=== PATIENT | male | born 1970 | race Caucasian/White ===

== ENCOUNTER 2020-12-13 22:19 | Inpatient (IN) | payer MEDICARE, OTHER ==
[~2020-12-13] VITALS: Ht 180.3 cm; Wt 106.1 kg
[2020-12-13] MEDS ORDERED: ASPIRIN 81 MG TAB.CHEW PO ONE (22:30)
[2020-12-13] MEDS ORDERED: NITROGLYCERIN OINT 1 GM PACKET TP ONE (22:30)
[2020-12-13 22:41] LABS: HEMATOCRIT 44.1 % (36.7-47.1); MEAN CORPUSCULAR HEMOGLOBIN 28.3 uug (23.8-33.4); MEAN CORPUSCULAR VOLUME 85.6 fL (73.0-96.2); PLATELET COUNT (AUTO) 221 K/uL (152-348)
[2020-12-13 22:49] LABS: CREATININE 2.2 mg/dL (0.6-1.3); POTASSIUM 4.3 mmol/L (3.5-5.1)
[2020-12-13 23:03] LABS: BILIRUBIN,DIRECT 0.1 mg/dL (0.0-0.2); BILIRUBIN,TOTAL 0.3 mg/dL (0.2-1.0); TOTAL PROTEIN, SERUM 7.1 g/dL (6.4-8.2)
[2020-12-13] MEDS ORDERED: ASPIRIN 81 MG TAB.CHEW ONE (23:11)
[2020-12-13 23:21] LABS: MAGNESIUM 1.2 mg/dL (1.8-2.4)
[2020-12-13] MEDS ORDERED: FUROSEMIDE 40 MG/4 ML VIAL IV ONE (23:30)
[2020-12-13] MEDS ORDERED: CYANOCOBALAMIN 1000 MCG/ML VIAL IM ONE (23:30)
[2020-12-13] MEDS ORDERED: FUROSEMIDE 40 MG/4 ML VIAL ONE (23:57)
[2020-12-13] MEDS ORDERED: CYANOCOBALAMIN 1000 MCG/ML VIAL ONE (23:57)
[2020-12-14] MEDS ORDERED: MAGNESIUM SULFATE/D5W 100 ML ONE ×3 (00:39→03:06)
[2020-12-14] MEDS: MAGNESIUM SULFATE/D5W 100 ML IV SCH ×3 (00:48→03:09)
--- NOTE | 2020-12-14 01:00 | NUR ---
Patient does not remember names and doses of home medications at this time.
[2020-12-14] MEDS ORDERED: lasix PO (01:11)
[2020-12-14] MEDS ORDERED: metformin PO (01:11)
[2020-12-14] MEDS ORDERED: omeprazole (01:11)
[2020-12-14] MEDS ORDERED: ALBUTEROL SULFATE 2.5 MG/3 ML NEBU NEB PRN (01:15)
[2020-12-14] MEDS ORDERED: INSULIN REGULAR, HUMAN 300 UNIT/3 ML VIAL SQ PRN (01:30)
[2020-12-14] MEDS ORDERED: DEXTROSE 50% 50 ML DISP.SYRIN IV PRN ×2 (01:30→14:30)
[2020-12-14] MEDS ORDERED: HEPARIN SODIUM,PORCINE 5,000 UNITS/ML VIAL ONE (01:44)
[2020-12-14] MEDS ORDERED: HEPARIN/D5W DRIP 500 ML ONE (01:45)
--- NOTE | 2020-12-14 02:20 | NUR ---
Started heparin drip at 1000 units/hr with [address] Slade's order.
[2020-12-14] MEDS: HEPARIN/D5W DRIP 500 ML IV PRN ×3 (02:22→11:37)
[2020-12-14] MEDS ORDERED: HEPARIN SODIUM,PORCINE/PF 100 UNIT/ML, 5ML SYR IV ONE (02:30)
--- NOTE | 2020-12-14 02:50 | NUR ---
Gave report to Sanjana CASILLAS
[2020-12-14] MEDS: CEFTRIAXONE 1 G in IV DEXTROSE 5% 50 ML IV SCH (03:00)
--- NOTE | 2020-12-14 03:10 | NUR ---
third magnesium ivpb hung, will continue on third floor
--- NOTE | 2020-12-14 03:25 | NUR ---
RECEIVED PT FROM ER VIA [facility]. UNDER THE CARE OF DAQUAN ALEXANDER. PT ON NONREBREATHER MASK. IV INTACT ON RIGHT WRIST AND LEFT WRIST. INFUSING HEPARIN AND MAGNESIUM SULFATE.PT IN NO ACUTE DISTRESS. ADMISSION PROCESS AND CARE PLAN INITIATED. BELONGING LIST DONE. SAFETY AND COMFORT PROVIDED. WILL CONTINUE TO MONITOR.
--- NOTE | 2020-12-14 03:30 | NUR ---
HEPARIN BOLUS GIVEN IN ER. CONTINUED RUNNING HEPARIN DRIP FROM ER AT 1000UNITS PER HOUR PER ER DOCTOR ORDERED. FAXED TO [facility] AND [facility]. ORDERED PTT LAB AT 6 HOURS WHICH IS 0830H.
[2020-12-14 03:40] VITALS: BP 126/72
[2020-12-14 05:08] LABS: *BILIRUBIN,URIN NEGATIVE (NEGATIVE); *BLOOD, URINE NEGATIVE (NEGATIVE); *CLARITY,URINE CLEAR (CLEAR); *COLOR,URINE YELLOW (YELLOW); *KETONES,URINE NEGATIVE (NEGATIVE); *UROBILINOGEN,URINE 0.2 E.U./dl (NORMAL); LEUKOCYTE ESTERASE ,URINE NEGATIVE (NEGATIVE); NITRITE, URINE NEGATIVE (NEGATIVE); PH,URINE 5.5 (5.0-8.0); UGLUCOSE NEGATIVE (NEGATIVE)
[2020-12-14] MEDS ORDERED: CEFTRIAXONE /D5W 50ML IVPB **ER PYXIS IV ONE (05:15)
[2020-12-14] MEDS: PANTOPRAZOLE SODIUM 40 MG VIAL IV SCH ×2 (05:38→21:01)
[2020-12-14] MEDS: BLOOD SUGAR DIAGNOSTIC 1 EACH STRIP VI SCH ×4 (05:41→21:01)
--- NOTE | 2020-12-14 06:30 | NUR ---
PT SLEPT INTERMITTENTLY. PT IN NO ACUTE DISTRESS. PRESCRIBED MEDICATION GIVEN AND PT TOLERATED IT WELL. SAFETY AND COMFORT PROVIDED. PT ON SINUS RHYTHM. PT ON 15L NONREBREATHER MASK. IV INTACT. WILL ENDORSE TO INCOMING NURSE FOR CONTINUITY OF CARE.
[2020-12-14 06:54] LABS: HEMATOCRIT 42.9 % (36.7-47.1); MEAN CORPUSCULAR HEMOGLOBIN 28.5 uug (23.8-33.4); MEAN CORPUSCULAR VOLUME 86.4 fL (73.0-96.2); PLATELET COUNT (AUTO) 192 K/uL (152-348)
--- NOTE | 2020-12-14 07:00 | NUR ---
Received patient in bed, left side position, alert, easily aroused and verbally responsive. noted shortness of breathe on 15L with a NRM. O2 saturation 94%, sinus rhythm on monitor, denies chest pain. continue AVELINO monitoring.
[2020-12-14 07:26] LABS: BILIRUBIN,TOTAL 0.3 mg/dL (0.2-1.0); CREATININE 1.4 mg/dL (0.6-1.3); MAGNESIUM 2.1 mg/dL (1.8-2.4); PHOSPHOROUS 5.2 mg/dL (2.5-4.9); POTASSIUM 4.1 mmol/L (3.5-5.1); TOTAL PROTEIN, SERUM 6.7 g/dL (6.4-8.2)
[2020-12-14 07:34] LABS: THYROID STIMULATING HORMONE 0.326 mIU/mL (0.358-3.740)
[2020-12-14] MEDS: IPRATROPIUM BROMIDE 0.5 MG/2.5 ML NEBU NEB SCH ×4 (07:42→19:30)
[2020-12-14 08:00] VITALS: BP 100/50
[2020-12-14] MEDS: ASPIRIN 81 MG TAB.CHEW PO SCH (08:19)
[2020-12-14] MEDS: FUROSEMIDE 40 MG/4 ML VIAL IV SCH ×2 (08:19→21:00)
[2020-12-14] MEDS ORDERED: PANTOPRAZOLE SODIUM IV 40 MG in IV DEXTROSE 5% 100 ML IV SCH (09:00)
[2020-12-14] MEDS ORDERED: HEPARIN SODIUM,PORCINE 5,000 UNITS/ML VIAL SQ SCH (09:00)
[2020-12-14] MEDS ORDERED: FUROSEMIDE 40 MG/4 ML VIAL IVP SCH (09:00)
--- NOTE | 2020-12-14 09:00 | NUR ---
seen by doctor Earlene, made aware of troponin levels this am, said continue heparin drips per protocol.
[2020-12-14 10:15] LABS: *AMPHETAMINE, URINE NEGATIVE (NEGATIVE); *CANNABINOID, URINE NEGATIVE (NEGATIVE); *COCCAINE, URINE NEGATIVE (NEGATIVE); *OPIATE, URINE NEGATIVE (NEGATIVE); *PHENCYCLIDINE SCREEN,URINE NEGATIVE (NEGATIVE)
[2020-12-14] MEDS ORDERED: HEPARIN SODIUM,PORCINE 5,000 UNITS/ML VIAL IV ONE ×2 (11:15→18:30)
[2020-12-14 11:36] VITALS: BP 101/61
--- NOTE | 2020-12-14 13:00 | NUR ---
[facility] Specimen PCR collected and sent to lab.
--- NOTE | 2020-12-14 14:57 | NUR ---
per pharmacy okay to give heparin drip on telemetry status. Dr. Banks noted and gave orders to transfer to telemetry.
[2020-12-14] MEDS ORDERED: UMEC62.5 IH (14:59)
[2020-12-14] MEDS ORDERED: POTA-10 PO (14:59)
[2020-12-14] MEDS ORDERED: FURO40TA5 PO (14:59)
[2020-12-14] MEDS ORDERED: LINA145C PO (14:59)
[2020-12-14] MEDS ORDERED: FENO160T PO (14:59)
[2020-12-14] MEDS ORDERED: PALI234D IM (14:59)
[2020-12-14] MEDS ORDERED: METF-440 PO (14:59)
[2020-12-14] MEDS ORDERED: ROSU40TA PO (14:59)
[2020-12-14] MEDS ORDERED: IBUP-1955 PO (14:59)
[2020-12-14] MEDS ORDERED: ASPI81TA31 PO (14:59)
[2020-12-14] MEDS ORDERED: ALBU18HF2 INH (14:59)
[2020-12-14] MEDS ORDERED: MONT10TA33 PO (14:59)
[2020-12-14] MEDS ORDERED: LAMO100T17 PO (14:59)
[2020-12-14] MEDS ORDERED: ERGO500040 PO (14:59)
[2020-12-14] MEDS ORDERED: SPIR25TA6 PO (14:59)
[2020-12-14] MEDS ORDERED: OMEP20CA15 PO (14:59)
[2020-12-14] MEDS ORDERED: FLUT1DIS28 IH (14:59)
[2020-12-14 16:00] VITALS: BP 118/66
[2020-12-14] MEDS: INSULIN REGULAR, HUMAN 300 UNIT/3 ML VIAL SQ PRN ×2 (16:44→21:08)
[2020-12-14 20:20] VITALS: BP 127/65
--- NOTE | 2020-12-14 21:33 | NUR ---
Received patient in bed awake alert and oriented x4. SOB noted on exertion. On continous O2 @ 15L nonrebreather mask , pulse ox 96%. All needs attended. Patient on continous heparin drip @ 1600 units/kg/hr @ 32 cc/hr via right arm heplock. Will monitor patient. For repeat PTT @ [place]. Voiding well in the urinal. On Lasix given as ordered. I & O monitored. Accucheck 151 with 2units humalog given as coverage. Patient sinus rhythm on the monitor. Denies any pain at this time. Kept comfortable. patient placed on continous pulse ox. VSS.
--- NOTE | 2020-12-15 01:07 | NUR ---
patient very restless in bed. AAOx4 Accidentally pulled IV out. Patient restarted with #20 right FA heplock, heparin infusing at 32cc/hr. Left arm #20 also placed flushed and patent, on IV ABT given as scheduled. On continous pulse ox 98% on 15L nonrebreather mask. Denies any pain nor any discomfort. Will monitor patient.
[2020-12-15] MEDS: IPRATROPIUM BROMIDE 0.5 MG/2.5 ML NEBU NEB SCH ×4 (01:27→19:14)
[2020-12-15] MEDS ORDERED: HEPARIN SODIUM,PORCINE 5,000 UNITS/ML VIAL SQ ONE (01:45)
[2020-12-15] MEDS: HEPARIN/D5W DRIP 500 ML IV PRN (02:02)
[2020-12-15] MEDS: CEFTRIAXONE 1 G in IV DEXTROSE 5% 50 ML IV SCH (02:11)
--- NOTE | 2020-12-15 02:16 | NUR ---
APTT 30.4 Heparin bolus 6000 units given per protocol. Heparin drip increase by 3000 units/kg/hr now on Heparin @28790 units/kg/hr @ 38cc/hr. For repeat PTT @ 0730am Addendum: 12/15/20 at 0650 by SAUD SCHMITT RN Heparin drip increase to 300 units/kg/hr. On heparin @ 1900 units/kg/hr @ 38cc/hr. For repeat PTT @0730am.APTT 30.4 Heparin bolus 6000 units given per protocol.
--- NOTE | 2020-12-15 05:07 | NUR ---
Slept most of the shift. Vital signs taken and recorded. Temp 99.1 HR 97 Resp 22 BP 119/62 pulse Ox 97% on 15L nonrebreather mask. Patient SR on the monitor. On continous pulse ox. On heparin drip @ 54906iqtkw/kg/hr @ 38 cc/hr via right forearm. Will monitor patient. Patient for possible transfer to ICU for better monitoring.
[2020-12-15] MEDS: BLOOD SUGAR DIAGNOSTIC 1 EACH STRIP VI SCH ×4 (06:39→21:04)
--- NOTE | 2020-12-15 06:40 | NUR ---
patient transferred to CCU. No respiratory distress noted.
[2020-12-15 07:17] LABS: MEAN CORPUSCULAR HEMOGLOBIN 28.7 uug (23.8-33.4); MEAN CORPUSCULAR VOLUME 86.5 fL (73.0-96.2); PLATELET COUNT (AUTO) 186 K/uL (152-348)
[2020-12-15 07:19] LABS: CREATININE 0.8 mg/dL (0.6-1.3); MAGNESIUM 1.6 mg/dL (1.8-2.4); PHOSPHOROUS 2.3 mg/dL (2.5-4.9); POTASSIUM 4.4 mmol/L (3.5-5.1)
--- NOTE | 2020-12-15 07:30 | NUR ---
Received change of shift report, patient is awake in bed and answers to questions asked. Pt complaining that he is unable to breath. Changes his non rebreather mask because the previous was not working, Pt states that he is now feeling better. Also changed out all his leads aand turned temperature down which was previously at 90. Safety measures are in place. Will continue to monitor patient.
--- NOTE | 2020-12-15 07:50 | NUR ---
Dr Lopez sees patient and gave order to have heparin drip discontinued. Will continue to monitor.
[2020-12-15] MEDS: MAGNESIUM SULFATE/D5W 100 ML IV SCH ×4 (08:13→13:46)
[2020-12-15] MEDS: ASPIRIN 81 MG TAB.CHEW PO SCH (08:35)
[2020-12-15] MEDS: FUROSEMIDE 40 MG/4 ML VIAL IV SCH ×2 (08:35→20:41)
[2020-12-15] MEDS: PANTOPRAZOLE SODIUM 40 MG VIAL IV SCH (08:35)
[2020-12-15] MEDS: INSULIN REGULAR, HUMAN 300 UNIT/3 ML VIAL SQ PRN ×3 (08:36→16:24)
--- NOTE | 2020-12-15 09:01 | NUR ---
Oral care done, Will continue to monitor.
[2020-12-15 12:00] VITALS: BP 117/45
[2020-12-15] MEDS ORDERED: ALBUTEROL SULFATE 8 GM HFA.AER.AD IH PRN (15:45)
[2020-12-15 16:00] VITALS: BP 129/67
[2020-12-15] MEDS ORDERED: NEUTRA PHOS PACKET PO ONE ×2 (16:00)
[2020-12-15] MEDS ORDERED: ALBUTEROL SULFATE 2.5 MG/3 ML NEBU NEB PRN (16:00)
[2020-12-15] MEDS: PANTOPRAZOLE SODIUM 40 MG TABLET.DR PO SCH (16:22)
--- NOTE | 2020-12-15 19:55 | NUR ---
Received patient in bed alert easily aroused with BIPAP in place. No s/s of distress noted. Soft restraints on bilateral hands .Iv intact on right and left hand patent and intact.Villalta catheter draining well with clear yellow urine output.No hematuria or sediment.1:1 sitter at bedside.Vss. Will continue to monitor.
[2020-12-15 20:32] VITALS: BP 114/65
[2020-12-16] VITALS: BP 112/58
[2020-12-16] MEDS: IPRATROPIUM BROMIDE 0.5 MG/2.5 ML NEBU NEB SCH ×4 (01:30→19:34)
[2020-12-16] MEDS: CEFTRIAXONE 1 G in IV DEXTROSE 5% 50 ML IV SCH (03:24)
[2020-12-16 06:00] VITALS: BP 106/57
[2020-12-16] MEDS: PANTOPRAZOLE SODIUM 40 MG TABLET.DR PO SCH ×2 (06:15→17:09)
[2020-12-16] MEDS: BLOOD SUGAR DIAGNOSTIC 1 EACH STRIP VI SCH ×4 (06:39→20:42)
[2020-12-16 07:01] LABS: HEMATOCRIT 44.3 % (36.7-47.1); MEAN CORPUSCULAR HEMOGLOBIN 28.9 uug (23.8-33.4); MEAN CORPUSCULAR VOLUME 87.7 fL (73.0-96.2); PLATELET COUNT (AUTO) 197 K/uL (152-348)
[2020-12-16 07:53] LABS: ALANINE AMINOTRANSFERASE 184 U/L (16-63); ALKALINE PHOSPHATASE 46 U/L (50-136); ASPARTATE AMINOTRANSFERASE 50 U/L (15-37); BILIRUBIN,DIRECT < 0.1 mg/dL (0.0-0.2); BILIRUBIN,TOTAL 0.5 mg/dL (0.2-1.0); CARBON DIOXIDE 39 mmol/L (21-32); CHLORIDE 100 mmol/L (98-107); CREATININE 0.7 mg/dL (0.6-1.3); GLUCOSE 119 mg/dL (74-106); PHOSPHOROUS 2.6 mg/dL (2.5-4.9); POTASSIUM 4.3 mmol/L (3.5-5.1); TOTAL PROTEIN, SERUM 7.2 g/dL (6.4-8.2); UREA NITROGEN, BLOOD 19 mg/dL (7-18)
--- NOTE | 2020-12-16 08:00 | NUR ---
received patient laying in bed in no apparent distress. patient is currently on BiPAP and tolerating well, rr even and non-labored, no c/o sob at this time. patient currently in PUI all precautions upheld, currently 1:1 due to patient with behavior on pulling on IV tubing, oxygen tubing, and cathether pulling. attempted to redirect patient with some help. vital signs bp:123/54, p: 83, rr: 20, spo2 96% on bipap, t: 98.6. reminded patient to use call light for help. call light within reach, side rails up x2. will monitor.
[2020-12-16 09:20] VITALS: BP 133/53
[2020-12-16] MEDS: FUROSEMIDE 40 MG/4 ML VIAL IV SCH (09:24)
[2020-12-16] MEDS: INSULIN REGULAR, HUMAN 300 UNIT/3 ML VIAL SQ PRN ×4 (09:24→20:44)
[2020-12-16] MEDS: ASPIRIN 81 MG TAB.CHEW PO SCH (09:26)
--- NOTE | 2020-12-16 11:00 | NUR ---
patient seen by Dr. Lopez.
--- NOTE | 2020-12-16 12:00 | NUR ---
Per patient he is to receive his next invega shot tomorrow 12/17, pharmacy aware.
[2020-12-16] MEDS ORDERED: OLANZAPINE ZYDIS 5 MG TAB.RAPDIS PO PRN (12:15)
[2020-12-16] MEDS ORDERED: LORAZEPAM 1 MG TABLET PO PRN (12:15)
--- NOTE | 2020-12-16 12:57 | NUR ---
Dr. Horner doing rounds, explained patient wishes to eat and drink and it is difficult with the bipap machine, per MD ok to place patient back on non-rebreather at 15L, RT notified, RT in unit at this time.
--- NOTE | 2020-12-16 14:37 | NUR ---
patient remains on 15L non-rebreather currently sleeping and in no apparent distress. RR even and non-labored, 0 episode of SOB at this time, spo2 at 95% on 15L
[2020-12-16] MEDS ORDERED: MONTELUKAST SODIUM 10 MG TABLET PO PRN (14:45)
[2020-12-16] MEDS ORDERED: ALBUTEROL SULFATE 8 GM HFA.AER.AD INH PRN (14:45)
--- NOTE | 2020-12-16 15:18 | NUR ---
received a call from pharmacy to ask patients family if they can bring linzess medication, spoke to sister Karrie calle i live in [place] and i cant come and my mother doesn't drive and is only turkish speaking.
[2020-12-16 15:55] VITALS: BP 123/62
[2020-12-16] MEDS ORDERED: FLUTICASONE/SALMETEROL 250/50 INHALER IH SCH (17:00)
[2020-12-16] MEDS: LAMOTRIGINE 100 MG TABLET PO SCH (17:09)
--- NOTE | 2020-12-16 18:51 | NUR ---
patient remains stable at this time. currently on 15L non-rebreather, 0 sob at this time. rr even and non-labored. 1:1 sitter at bed side. call light within reach. side rails up x2.
[2020-12-16] MEDS: ATORVASTATIN 40 MG TABLET PO SCH (20:09)
[2020-12-16 20:28] VITALS: BP 113/62
--- NOTE | 2020-12-16 20:52 | NUR ---
Received pt resting in bed. AAO x2. On 15L NRB, no acute distress noted. Unlabored and even respiration. No pain. Due med given as ordered. Blood sugar 162, insulin coverage given as per sliding scale. 1:1 sitter at bedside. Safety measures maintained. Will continue to monitor.
[2020-12-16] MEDS ORDERED: Medication Not On Formulary EA (Rosuvastatin Calcium (Crestor) 40 MG) PO SCH (21:00)
[2020-12-17 00:11] VITALS: BP 130/58
[2020-12-17] MEDS: IPRATROPIUM BROMIDE 0.5 MG/2.5 ML NEBU NEB SCH ×4 (00:31→19:30)
[2020-12-17] MEDS: CEFTRIAXONE 1 G in IV DEXTROSE 5% 50 ML IV SCH (03:21)
[2020-12-17 04:40] VITALS: BP 133/53
[2020-12-17] MEDS: PANTOPRAZOLE SODIUM 40 MG TABLET.DR PO SCH ×2 (06:10→17:16)
--- NOTE | 2020-12-17 06:25 | NUR ---
Pt tolerating 15L NRB, no acute distress noted. Slept comfortably t/o the night. Remains stable. Villalta catheter draining well with yellow colored urine. Will endorse accordingly.
[2020-12-17] MEDS: BLOOD SUGAR DIAGNOSTIC 1 EACH STRIP VI SCH ×4 (06:31→20:27)
[2020-12-17 07:21] LABS: HEMATOCRIT 44.7 % (36.7-47.1); MEAN CORPUSCULAR VOLUME 87.1 fL (73.0-96.2); PLATELET COUNT (AUTO) 215 K/uL (152-348)
[2020-12-17 07:33] LABS: CREATININE 0.7 mg/dL (0.6-1.3); MAGNESIUM 1.7 mg/dL (1.8-2.4); PHOSPHOROUS 3.1 mg/dL (2.5-4.9)
[2020-12-17 08:00] VITALS: BP 94/50
--- NOTE | 2020-12-17 08:05 | NUR ---
Patient received resting in bed. Sitter by bedside. On 15L O2 via non-rebreather mask. No complains verbalized. Right forearm 20 gauge intact. Safety measures in place. Will continue to monitor
[2020-12-17] MEDS ORDERED: Medication Not On Formulary EA (Fenofibrate 160 MG) PO SCH (09:00)
[2020-12-17] MEDS ORDERED: PALIPERIDONE PALMITATE 156 MG/ML SYRINGE IM ONE (09:00)
[2020-12-17] MEDS ORDERED: LINZESS 145MG - PATIENT MAY USE OWN MED- MD OK PO SCH (09:00)
[2020-12-17] MEDS ORDERED: Medication Not On Formulary EA (Linaclotide (Linzess) 145 MCG) PO SCH (09:00)
[2020-12-17] MEDS ORDERED: ASPIRIN 81 MG TAB.CHEW PO SCH (09:00)
[2020-12-17] MEDS: FENOFIBRATE NANOCRYSTALLIZED 145 MG TABLET PO SCH (09:53)
[2020-12-17] MEDS: ASPIRIN 81 MG TAB.CHEW PO SCH (09:53)
[2020-12-17] MEDS: LAMOTRIGINE 100 MG TABLET PO SCH ×2 (09:53→17:16)
[2020-12-17] MEDS: SPIRONOLACTONE 25 MG TABLET PO SCH (09:54)
[2020-12-17] MEDS: FUROSEMIDE 40 MG TABLET PO SCH (09:54)
[2020-12-17] MEDS: FLUTICASONE/VILANTEROL 1 EACH BLST.W.DEV INH SCH (09:55)
[2020-12-17] MEDS: MAGNESIUM SULFATE/D5W 100 ML IV SCH ×2 (10:57→12:14)
[2020-12-17 12:00] VITALS: BP 103/61
[2020-12-17] MEDS: INSULIN REGULAR, HUMAN 300 UNIT/3 ML VIAL SQ PRN (12:13)
[2020-12-17 16:00] VITALS: BP 106/61
--- NOTE | 2020-12-17 17:56 | NUR ---
Spoke with Honorio from Lab follow up with PCR secondary to PCR test has been 3 days pending. Per Honorio pcr test not resulted and will f/u in am.
[2020-12-17 19:54] VITALS: BP 127/54
[2020-12-17] MEDS: ATORVASTATIN 40 MG TABLET PO SCH (21:02)
[2020-12-18 00:23] VITALS: BP 132/51
[2020-12-18] MEDS: IPRATROPIUM BROMIDE 0.5 MG/2.5 ML NEBU NEB SCH ×4 (00:32→19:35)
[2020-12-18] MEDS: CEFTRIAXONE 1 G in IV DEXTROSE 5% 50 ML IV SCH (02:33)
[2020-12-18 04:20] VITALS: BP 122/61
[2020-12-18] MEDS: BLOOD SUGAR DIAGNOSTIC 1 EACH STRIP VI SCH ×4 (06:18→20:05)
[2020-12-18] MEDS: PANTOPRAZOLE SODIUM 40 MG TABLET.DR PO SCH ×2 (06:18→16:40)
[2020-12-18 06:51] LABS: CREATININE 0.8 mg/dL (0.6-1.3); MAGNESIUM 1.7 mg/dL (1.8-2.4); POTASSIUM 3.7 mmol/L (3.5-5.1)
--- NOTE | 2020-12-18 08:00 | NUR ---
Pt awake alert x 3. Pt denies any c/o pain. f/c draining dark yellow urine. Encouraged increase fluids. PT refusing his HHN tx. Explained purpose of HHN to help with his breathing. PT was agreeable. Call light is within reach.
[2020-12-18] MEDS: FENOFIBRATE NANOCRYSTALLIZED 145 MG TABLET PO SCH (08:06)
[2020-12-18] MEDS: LAMOTRIGINE 100 MG TABLET PO SCH ×2 (08:06→16:40)
[2020-12-18] MEDS: FUROSEMIDE 40 MG TABLET PO SCH (08:06)
[2020-12-18] MEDS: ASPIRIN 81 MG TAB.CHEW PO SCH (08:06)
[2020-12-18] MEDS: SPIRONOLACTONE 25 MG TABLET PO SCH (08:07)
[2020-12-18] MEDS: FLUTICASONE/VILANTEROL 1 EACH BLST.W.DEV INH SCH (08:07)
[2020-12-18 08:30] VITALS: BP 96/48
--- NOTE | 2020-12-18 11:00 | NUR ---
pt tolerating Tapered o2 to 10lit with simple mask with saturation of 93%.
[2020-12-18] MEDS: MAGNESIUM SULFATE/D5W 100 ML IV SCH ×2 (11:08→12:00)
[2020-12-18] MEDS: ACETAzolamide 250 MG TABLET PO SCH ×2 (11:08→20:02)
[2020-12-18] MEDS: INSULIN REGULAR, HUMAN 300 UNIT/3 ML VIAL SQ PRN ×2 (11:55→20:11)
[2020-12-18 12:00] VITALS: BP 114/67
[2020-12-18] MEDS: ALBUTEROL SULFATE 2.5 MG/ 0.5 ML NEBU NEB SCH ×2 (13:31→19:35)
--- NOTE | 2020-12-18 13:45 | NUR ---
Notified infection control of rapid result was negative. PT ok to stay out of covid isolation per infection control.
[2020-12-18 15:44] VITALS: BP 104/63
--- NOTE | 2020-12-18 18:31 | NUR ---
PT tolerating o2 titrated to 8 lit simple mask with sat of 94%. pt has good appetite throughout shift. PT is in no acute distress.
--- NOTE | 2020-12-18 19:45 | NUR ---
Received patient in bed, awake able to make some needs know, no sob no chest pain, on 8 liter oxygen via mask saturation sat 92 to 96%, patient redirectable, dougherty cath patent draining with yellow color urine in moderate amount cont to monitor.
[2020-12-18] MEDS: ATORVASTATIN 40 MG TABLET PO SCH (20:02)
[2020-12-18 20:14] VITALS: BP 112/52
[2020-12-19 00:08] VITALS: BP 123/58
[2020-12-19 04:30] VITALS: BP 110/55
[2020-12-19] MEDS: PANTOPRAZOLE SODIUM 40 MG TABLET.DR PO SCH ×2 (06:08→16:21)
[2020-12-19] MEDS: BLOOD SUGAR DIAGNOSTIC 1 EACH STRIP VI SCH (06:08)
[2020-12-19] MEDS: ALBUTEROL SULFATE 2.5 MG/ 0.5 ML NEBU NEB SCH ×3 (07:13→20:33)
[2020-12-19] MEDS: IPRATROPIUM BROMIDE 0.5 MG/2.5 ML NEBU NEB SCH ×3 (07:13→20:33)
[2020-12-19 08:00] VITALS: BP 97/57
--- NOTE | 2020-12-19 08:30 | NUR ---
PT's oxygen out while eating his breakfast. Noted o2 sat of 78% on r/a at rest. Reapplied simple mask @8lit with 96% o2 sat. pt is in no acute distress. Pt alert and oriented x 4. Call light is within reach.
[2020-12-19] MEDS: ACETAzolamide 250 MG TABLET PO SCH ×2 (08:49→20:21)
[2020-12-19] MEDS: ASPIRIN 81 MG TAB.CHEW PO SCH (08:49)
[2020-12-19] MEDS: SPIRONOLACTONE 25 MG TABLET PO SCH (08:49)
[2020-12-19] MEDS: LAMOTRIGINE 100 MG TABLET PO SCH ×2 (08:49→16:21)
[2020-12-19] MEDS: FUROSEMIDE 40 MG TABLET PO SCH (08:49)
[2020-12-19] MEDS: FLUTICASONE/VILANTEROL 1 EACH BLST.W.DEV INH SCH (08:50)
--- NOTE | 2020-12-19 09:00 | NUR ---
Pt refused G, RN aware..
[2020-12-19 09:52] LABS: HEMATOCRIT 46.9 % (36.7-47.1); MEAN CORPUSCULAR HEMOGLOBIN 28.3 uug (23.8-33.4); MEAN CORPUSCULAR VOLUME 85.7 fL (73.0-96.2); PLATELET COUNT (AUTO) 214 K/uL (152-348)
[2020-12-19 10:17] LABS: CREATININE 0.9 mg/dL (0.6-1.3); MAGNESIUM 2.2 mg/dL (1.8-2.4)
[2020-12-19] MEDS ORDERED: methylPREDNISolone SOD SUCC 125 MG/2 ML VIAL IV ONE (10:30)
[2020-12-19 11:57] VITALS: BP 105/62
--- NOTE | 2020-12-19 14:00 | NUR ---
Spoke with Sister asking for updates on patient. Sister, Flakita [phone], states that pt lives with his mom and brother Garrett. Gave information to kristian.
[2020-12-19 16:00] VITALS: BP 110/52
[2020-12-19] MEDS ORDERED: LACTULOSE 20 G/30 ML LIQUID UDC PO ONE (16:30)
[2020-12-19] MEDS ORDERED: LACTULOSE 20 G/30 ML LIQUID UDC PO PRN (17:30)
--- NOTE | 2020-12-19 18:13 | NUR ---
F/C taken out as ordered per pt's request will monitor pt's urine output. pt had 1500cc output on urine. Pt given lactulose no bm since admission.
[2020-12-19 19:57] VITALS: BP 102/48
[2020-12-19] MEDS: ATORVASTATIN 40 MG TABLET PO SCH (20:21)
[2020-12-20 04:00] VITALS: BP 136/69
--- NOTE | 2020-12-20 04:42 | NUR ---
Patient remain in bed with admitting dianosis of acute hypoxia. Patient also has 1:1 sitter for patient's safety and oxygen saturation. On 5L nasal cannula. Fall precautions maintained. Siderails up for safety. Accucheck 184. Will give coverage.
[2020-12-20] MEDS: PANTOPRAZOLE SODIUM 40 MG TABLET.DR PO SCH ×2 (06:19→16:24)
[2020-12-20 06:30] LABS: HEMATOCRIT 46.4 % (36.7-47.1); MEAN CORPUSCULAR HEMOGLOBIN 28.4 uug (23.8-33.4); MEAN CORPUSCULAR VOLUME 85.4 fL (73.0-96.2); PLATELET COUNT (AUTO) 238 K/uL (152-348)
[2020-12-20 06:53] LABS: BILIRUBIN,TOTAL 0.5 mg/dL (0.2-1.0); CREATININE 0.9 mg/dL (0.6-1.3); PHOSPHOROUS 4.3 mg/dL (2.5-4.9); POTASSIUM 3.7 mmol/L (3.5-5.1); TOTAL PROTEIN, SERUM 7.5 g/dL (6.4-8.2)
--- NOTE | 2020-12-20 07:30 | NUR ---
Received report from SONJA Herndon. All questions, comments, and concerns were addressed. Received patient resting quietly in assigned bed. Bed is in low and locked position. Patient with 1:1 sitter for safety.
[2020-12-20] MEDS: IPRATROPIUM BROMIDE 0.5 MG/2.5 ML NEBU NEB SCH ×3 (07:36→19:19)
[2020-12-20] MEDS: ALBUTEROL SULFATE 2.5 MG/ 0.5 ML NEBU NEB SCH ×3 (07:36→19:19)
[2020-12-20] MEDS: IBUPROFEN 600 MG TABLET PO PRN ×2 (08:00→14:59)
[2020-12-20 08:01] VITALS: BP 98/64
[2020-12-20] MEDS: SPIRONOLACTONE 25 MG TABLET PO SCH (09:00)
[2020-12-20] MEDS: FUROSEMIDE 40 MG TABLET PO SCH (09:00)
[2020-12-20] MEDS: ASPIRIN 81 MG TAB.CHEW PO SCH (09:10)
[2020-12-20] MEDS: LAMOTRIGINE 100 MG TABLET PO SCH ×2 (09:11→16:24)
[2020-12-20] MEDS: ACETAzolamide 250 MG TABLET PO SCH ×2 (09:11→21:20)
[2020-12-20] MEDS: FLUTICASONE/VILANTEROL 1 EACH BLST.W.DEV INH SCH (09:11)
[2020-12-20 09:50] LABS: ABG BASE EXCESS 1.8 mmol/L; ABG HCO3 28.5 mmol/L; ABG PH 7.356 (7.350-7.450); ABG PO2 56.8 mmHg (75.0-100.0); ABG SITE LEFT RADIAL; ABG TOTAL HEMOGLOBIN 15.7 G/dL (13.5-18.0); COHb 1.4 % (0.5-1.5); MetHb 0.3 % (0.0-1.5); O2Hb 86.8 % (94.0-97.0); VENT MODE Nasal Cannula
[2020-12-20 12:00] VITALS: BP 97/38
[2020-12-20 16:11] VITALS: BP 120/66
--- NOTE | 2020-12-20 18:05 | NUR ---
Patient is alert and oriented. Respirations are even and unlabored. No SOB, no chest pain, no abnormal breathing. No s/s of respiratory distress. Patient receiving 5 L oxygen via mask, tolerating well and saturation in the mid 90s. Patient is able to tolerate food and fluids. Patient is able to ambulate independently with supervision from staff. Patient denies pain or discomfort at this time. Patient reported that he has a difficult time having a BM, he reports that he had a BM today but it was small fabricio and he is having abdominal discomfort. Lactulose PRN administered, no adverse reaction. Patient instructed to inform staff when he has a BM. Patient able to void with a urinal. Patient's bed in low and locked position. Call light within reach.
--- NOTE | 2020-12-20 18:44 | NUR ---
1:1 sitter discontinued per MD. Patient is cooperative, redirectable, and able to communicate needs to staff appropriately. Patient educated about safety and how to use call light.
--- NOTE | 2020-12-20 19:00 | NUR ---
RECD PT IN BED, RESTING COMFORTABLY.NO ACUTE DISTRESS NOTED. OXYGEN INHALATIONOF 5L/MIN VIA MASK, TOLERATED WELL, SATTING AT 95%.
[2020-12-20] MEDS: ATORVASTATIN 20 MG TABLET PO SCH (21:20)
--- NOTE | 2020-12-20 21:30 | NUR ---
BP AT THIS TIME 84/46, NO COMPLAINTS PRESENTED, THE REST OF HIS VITAL SIGNS ARE W/I NORMAL LIMITS, ASYMPTOMATIC,VOIDED FREELY WELL, USING URINAL.ALERT, ORIENTED X3.DR. MATTHEW SUAREZ NOTIFIED REGARDING LOW BP. CONTINUE TO MONITOR.
[2020-12-20 21:42] VITALS: BP 84/46
--- NOTE | 2020-12-20 23:30 | NUR ---
BP RECHECKED 96/, NO COMPLAINTS OF ANY DISCOMFORTS.SLEPT AT SHORT INTERVALS,NEEDS ATTENDED TO.
--- NOTE | 2020-12-20 23:30 | NUR ---
IV SITE ON RIGHT HAND G 20 PATENT AND INTACT.
[2020-12-21 04:00] VITALS: BP 99/54
--- NOTE | 2020-12-21 05:58 | NUR ---
iIN APPARENTLY FAIR CONDITION, COOPERATIVE AND CALM DEMEANOR. AFEBRILE.LATEST BP 99/54.RESTED FAIRLY WELL.
[2020-12-21 06:06] VITALS: BP 96/61
[2020-12-21 06:34] LABS: HEMATOCRIT 47.2 % (36.7-47.1); MEAN CORPUSCULAR HEMOGLOBIN 27.5 uug (23.8-33.4); MEAN CORPUSCULAR VOLUME 85.7 fL (73.0-96.2); PLATELET COUNT (AUTO) 226 K/uL (152-348)
[2020-12-21] MEDS: PANTOPRAZOLE SODIUM 40 MG TABLET.DR PO SCH ×2 (06:47→17:28)
[2020-12-21 07:03] LABS: MAGNESIUM 1.8 mg/dL (1.8-2.4); PHOSPHOROUS 4.9 mg/dL (2.5-4.9); POTASSIUM 4.2 mmol/L (3.5-5.1)
--- NOTE | 2020-12-21 07:30 | NUR ---
patient received sitting on a chair, patient is alert and oriented and able to make needs known. currently on 8L via mask with spo2 98%, asked patient if i can titrate to 7, patients states not now i dont feel comfortable, make later. patient with right hand [address] and patent. reminded patient to use call light for help, side rails up x2.
[2020-12-21] MEDS: ALBUTEROL SULFATE 2.5 MG/ 0.5 ML NEBU NEB SCH ×3 (07:59→19:07)
[2020-12-21] MEDS: IPRATROPIUM BROMIDE 0.5 MG/2.5 ML NEBU NEB SCH ×3 (07:59→19:07)
[2020-12-21] MEDS: ACETAzolamide 250 MG TABLET PO SCH ×2 (08:41→20:02)
[2020-12-21] MEDS: IBUPROFEN 600 MG TABLET PO PRN (08:41)
[2020-12-21] MEDS: LAMOTRIGINE 100 MG TABLET PO SCH ×2 (08:42→17:28)
[2020-12-21] MEDS: SPIRONOLACTONE 25 MG TABLET PO SCH (08:42)
[2020-12-21] MEDS: ASPIRIN 81 MG TAB.CHEW PO SCH (08:42)
[2020-12-21] MEDS: FUROSEMIDE 20 MG TABLET PO SCH (08:42)
[2020-12-21] MEDS: FLUTICASONE/VILANTEROL 1 EACH BLST.W.DEV INH SCH (08:47)
[2020-12-21 08:49] VITALS: BP 119/80
[2020-12-21] MEDS ORDERED: FUROSEMIDE 40 MG TABLET PO SCH (09:00)
--- NOTE | 2020-12-21 09:45 | NUR ---
Dr. Kaiser making rounds, explained that patient is refusing to titrate at this moment.
[2020-12-21] MEDS ORDERED: methylPREDNISolone SOD SUCC 40 MG/ML VIAL IV ONE (10:15)
[2020-12-21 11:00] VITALS: BP 115/71
--- NOTE | 2020-12-21 11:30 | NUR ---
patient titrated to 4l via n/c currently with spo2 at 94%, rr even and non-labored, 0 c/o sob at this time.
[2020-12-21 15:27] VITALS: BP 107/47
[2020-12-21] MEDS: ACETAMINOPHEN 325 MG TABLET PO PRN (17:28)
[2020-12-21 20:00] VITALS: BP 109/45
[2020-12-21] MEDS: ATORVASTATIN 20 MG TABLET PO SCH (20:02)
--- NOTE | 2020-12-21 20:39 | NUR ---
Received report from day shift. Patient is alert and oriented *4. Able to make needs known, no complaints at this time. Speech is clear, no altered behavior noted. On 4L oxygen via NC, sating 96% on continuos pulse ox monitor.
[2020-12-22 04:00] VITALS: BP 110/40
--- NOTE | 2020-12-22 06:28 | NUR ---
Patient sleeping most of the shift. Comfortable. Continues on 4L via NC, saturating 95-96% this shift. Patient is cooperative.
[2020-12-22] MEDS: PANTOPRAZOLE SODIUM 40 MG TABLET.DR PO SCH ×2 (06:32→17:18)
[2020-12-22] MEDS: IPRATROPIUM BROMIDE 0.5 MG/2.5 ML NEBU NEB SCH ×3 (07:24→20:52)
[2020-12-22] MEDS: ALBUTEROL SULFATE 2.5 MG/ 0.5 ML NEBU NEB SCH ×3 (07:24→20:53)
[2020-12-22] MEDS: ACETAMINOPHEN 325 MG TABLET PO PRN ×2 (08:40→17:18)
[2020-12-22] MEDS: LAMOTRIGINE 100 MG TABLET PO SCH ×2 (08:40→17:18)
[2020-12-22] MEDS: SPIRONOLACTONE 25 MG TABLET PO SCH (08:40)
[2020-12-22] MEDS: ASPIRIN 81 MG TAB.CHEW PO SCH (08:40)
[2020-12-22] MEDS: ACETAzolamide 250 MG TABLET PO SCH ×2 (08:41→20:08)
[2020-12-22] MEDS: FLUTICASONE/VILANTEROL 1 EACH BLST.W.DEV INH SCH (08:41)
[2020-12-22] MEDS: FUROSEMIDE 20 MG TABLET PO SCH (08:41)
[2020-12-22 11:32] VITALS: BP 113/68
[2020-12-22 15:36] VITALS: BP 123/82
--- NOTE | 2020-12-22 17:24 | NUR ---
patient titrated to room air, currently sp02 91-92 person, no c.o sob, rr even and non-labored.
[2020-12-22] MEDS: ATORVASTATIN 20 MG TABLET PO SCH (20:08)
[2020-12-22] MEDS ORDERED: OLAN5TAB6 PO (20:19)
[2020-12-22] MEDS ORDERED: ACET250T9 PO (20:19)
[2020-12-22] MEDS ORDERED: FURO20TA4 PO (20:19)
[2020-12-22 20:30] VITALS: BP 126/86
--- NOTE | 2020-12-22 20:50 | NUR ---
Received pt resting in bed. AAO x4. No acute distress noted. Denies pain/ discomfort. Pt ready for discharge, Dr. Dia ordered pt to be discharge and will send his meds to his pharmacy. Discharge papers done. Awaiting taxi, pt will be given taxi voucher. Pt very excited to go home and see his mother. Safety measures maintained. Call light and personal items within reach. Will continue to monitor.
--- NOTE | 2020-12-22 22:45 | NUR ---
IV site removed. Accompanied pt in the lobby, picked up by taxi at [id number]. Pt stable. Ambulatory.
[2021-01-15] MEDS ORDERED: PALIPERIDONE PALMITATE 156 MG/ML SYRINGE IM SCH (09:00)
== END 2020-12-22 22:51 | disposition home or self-care (01) | DRG 280 ==
LOC: ER 22:21 → TELE-TD3 12-14 02:57 → TELE3 12-14 13:57 → CCU 12-15 06:30 → MEDSURG3 12-15 11:30 → TELE3 12-15 11:36 → MEDSURG3 12-19 17:21
PROVIDERS: ADMIT Student in an Organized Health Care Education/Training Program; ATTEND Internal Medicine
DX: I11.0 Hypertensive heart disease with heart failure (principal); I21.A1 Myocardial infarction type 2; J96.21 Acute and chronic respiratory failure with hypoxia; J96.22 Acute and chronic respiratory failure with hypercapnia; N17.0 Acute kidney failure with tubular necrosis; I50.31 Acute diastolic (congestive) heart failure; J44.1 Chronic obstructive pulmonary disease with (acute) exacerbation; E44.1 Mild protein-calorie malnutrition; E87.1 Hypo-osmolality and hyponatremia; F20.0 Paranoid schizophrenia; E66.2 Morbid (severe) obesity with alveolar hypoventilation; J90 Pleural effusion, not elsewhere classified; E11.9 Type 2 diabetes mellitus without complications; E78.5 Hyperlipidemia, unspecified; E83.39 Other disorders of phosphorus metabolism; E83.42 Hypomagnesemia; Z87.01 Personal history of pneumonia (recurrent); Z20.822 Contact with and (suspected) exposure to COVID-19; Z86.16 Personal history of COVID-19; R74.01 Elevation of levels of liver transaminase levels; Z68.32 Body mass index [BMI] 32.0-32.9, adult; Z79.84 Long term (current) use of oral hypoglycemic drugs; Z99.81 Dependence on supplemental oxygen
CPT/HCPCS: 36415; 36600; 70030-TC; 71045; 83605; 83615; 83735; 84100; 84443; 85025; 85730; 86140; 87040; 93005; 93307; 94640; 94660; 94664; 94760; 97161; A4663; C9113; G0378; J0696; J1644; J1815; J1940; J2426; J2920; J2930; J3420; J3475; J3590; J7030; J7060; J8499; U0003

== ENCOUNTER 2021-03-18 22:50 | Inpatient (IN) | payer MEDICARE, OTHER ==
[~2021-03-18] VITALS: Ht 180.3 cm; Wt 115.7 kg
[~2021-03-18 22:50] MED LIST: ACET250T9 PO; ALBU18HF2 INH; ASPI81TA31 PO; ERGO500040 PO; FLUT1DIS28 IH; FURO20TA4 PO; LAMO100T17 PO; LINA145C PO; METF-440 PO; MONT10TA33 PO; OLAN5TAB6 PO; OMEP20CA15 PO; PALI234D IM; POTA-10 PO; ROSU40TA PO; SPIR25TA6 PO; UMEC62.5 IH
[2021-03-18] MEDS ORDERED: PIPERACILLIN SODIUM/TAZOBACTAM 3.375 G in IV DEXTROSE 5% 50 ML IV ONE (23:00)
[2021-03-18] MEDS ORDERED: PIPERACILLIN/TAZOBACTAM/D5W 50 ML IV ONE (23:30)
[2021-03-18 23:42] LABS: MEAN CORPUSCULAR HEMOGLOBIN 26.5 uug (23.8-33.4); MEAN CORPUSCULAR VOLUME 81.5 fL (73.0-96.2); PLATELET COUNT (AUTO) 270 K/uL (152-348)
[2021-03-18 23:43] LABS: CREATININE 0.9 mg/dL (0.6-1.3); POTASSIUM 4.2 mmol/L (3.5-5.1)
[2021-03-18 23:56] LABS: BILIRUBIN,DIRECT 0.3 mg/dL (0.0-0.2); BILIRUBIN,TOTAL 0.5 mg/dL (0.2-1.0)
[2021-03-19] VITALS (15 sets, daily range): BP systolic 64–141; BP diastolic 53–77
[2021-03-19] MEDS ORDERED: NITROGLYCERIN OINT 1 GM PACKET TP ONE ×2 (00:15→02:15)
[2021-03-19] MEDS ORDERED: ASPIRIN 81 MG TAB.CHEW PO ONE (00:15)
[2021-03-19] MEDS ORDERED: FUROSEMIDE 40 MG/4 ML VIAL IV ONE (00:15)
[2021-03-19] MEDS ORDERED: DEXTROSE 50% 50 ML DISP.SYRIN IV PRN (02:15)
[2021-03-19] MEDS ORDERED: ONDANSETRON 4 MG/2 ML VIAL IV PRN (02:15)
[2021-03-19] MEDS ORDERED: MAGNESIUM HYDROXIDE 30 ML LIQUID UDC PO PRN (02:15)
[2021-03-19] MEDS ORDERED: INSULIN REGULAR, HUMAN 300 UNIT/3 ML VIAL SQ PRN (02:15)
[2021-03-19] MEDS ORDERED: PIPERACILLIN SODIUM/TAZO 3.375 GM VIAL ONE (05:45)
[2021-03-19] MEDS ORDERED: PIPERACILLIN SODIUM/TAZOBACTAM 3.375 G in IV DEXTROSE 5% 50 ML IV SCH ×2 (06:00→14:00)
[2021-03-19] MEDS: IV NORMAL SALINE 250 ML IV PRN (06:13)
[2021-03-19] MEDS ORDERED: PANTOPRAZOLE SODIUM 40 MG TABLET.DR PO SCH (07:00)
[2021-03-19] MEDS: ASPIRIN EC 81 MG TABLET.DR PO SCH (09:00)
[2021-03-19] MEDS: BLOOD SUGAR DIAGNOSTIC 1 EACH STRIP VI SCH ×3 (09:23→17:26)
[2021-03-19] MEDS: PANTOPRAZOLE SODIUM 40 MG VIAL IV SCH (09:30)
[2021-03-19] MEDS: ENOXAPARIN SODIUM 40 MG/0.4 ML DISP.SYRIN SQ SCH (09:33)
[2021-03-19] MEDS: IV D5/ 0.9% NACL 1,000 ML IV PRN (13:00)
[2021-03-19] MEDS: PIPERACILLIN SODIUM/TAZOBACTAM 3.375 G in IV DEXTROSE 5% 100 ML IV SCH ×2 (13:03→23:11)
[2021-03-19 13:20] LABS: ABG BASE EXCESS -1.3 mmol/L; ABG HCO3 28.6 mmol/L; ABG PCO2 74.5 mmHg (35.0-45.0); ABG PH 7.202 (7.350-7.450); ABG PO2 83.7 mmHg (75.0-100.0); ABG SITE LEFT BRACHIAL; ABG TOTAL HEMOGLOBIN 13.7 G/dL (13.5-18.0); COHb 4.2 % (0.5-1.5); MetHb 0.2 % (0.0-1.5); VENT MODE BIPAP
[2021-03-19] MEDS ORDERED: BENZ1TAB7 PO (13:49)
[2021-03-19] MEDS ORDERED: FENO160T PO (13:51)
[2021-03-19] MEDS ORDERED: RISP4TAB70 PO (13:52)
[2021-03-19 15:42] LABS: ABG BASE EXCESS -0.5 mmol/L; ABG HCO3 29.6 mmol/L; ABG PCO2 76.7 mmHg (35.0-45.0); ABG PH 7.204 (7.350-7.450); ABG PO2 106.5 mmHg (75.0-100.0); ABG SITE LEFT BRACHIAL; ABG TOTAL HEMOGLOBIN 13.7 G/dL (13.5-18.0); COHb 3.5 % (0.5-1.5); MetHb 0.3 % (0.0-1.5); O2Hb 93.9 % (94.0-97.0); VENT MODE BIPAP
[2021-03-19 17:51] LABS: ABG BASE EXCESS 2.4 mmol/L; ABG HCO3 32.8 mmol/L; ABG PCO2 82.5 mmHg (35.0-45.0); ABG PH 7.217 (7.350-7.450); ABG SITE LEFT RADIAL; ABG TOTAL HEMOGLOBIN 13.6 G/dL (13.5-18.0); COHb 2.8 % (0.5-1.5); MetHb 0.3 % (0.0-1.5); O2Hb 93.7 % (94.0-97.0); VENT MODE BIPAP
[2021-03-19] MEDS ORDERED: PROPOFOL 50 ML IV PRN (18:30)
[2021-03-19] MEDS ORDERED: ETOMIDATE 20 MG/10 ML VIAL IV ONE (19:05)
[2021-03-19] MEDS ORDERED: SUCCINYLCHOLINE CHLORIDE 200 MG/10 ML VIAL IV ONE (19:05)
[2021-03-19] MEDS: PROPOFOL 100 ML IV PRN ×3 (19:10→22:43)
[2021-03-19] MEDS: IPRATROPIUM BROMIDE 0.5 MG/2.5 ML NEBU NEB SCH (19:30)
[2021-03-19] MEDS: ALBUTEROL SULFATE 2.5 MG/3 ML NEBU NEB SCH (19:30)
[2021-03-19] MEDS: NOREPINEPHRINE BITARTRATE 32 MG in IV NORMAL SALINE 218 ML IV PRN (19:30)
[2021-03-19 21:04] LABS: ABG BASE EXCESS 3.9 mmol/L; ABG HCO3 30.9 mmol/L; ABG PCO2 56.7 mmHg (35.0-45.0); ABG PH 7.354 (7.350-7.450); ABG PO2 79.9 mmHg (75.0-100.0); ABG SITE LEFT BRACHIAL; ABG TOTAL HEMOGLOBIN 13.9 G/dL (13.5-18.0); COHb 2.2 % (0.5-1.5); MetHb 0.2 % (0.0-1.5); O2Hb 94.1 % (94.0-97.0); VENT MODE VENT - A/C; VT, ABG 600 mL
[2021-03-19] MEDS: DEXAMETHASONE SOD PHOSPHATE 10 MG INJ IV SCH (22:48)
[2021-03-19] MEDS: DOXYCYCLINE HYCLATE IV 100 MG in IV DEXTROSE 5% 100 ML IV SCH (23:10)
[2021-03-20] VITALS (65 sets, daily range): BP systolic 88–151; BP diastolic 43–94
[2021-03-20] MEDS: IPRATROPIUM BROMIDE 0.5 MG/2.5 ML NEBU NEB SCH ×4 (00:54→19:32)
[2021-03-20] MEDS: ALBUTEROL SULFATE 2.5 MG/3 ML NEBU NEB SCH ×4 (00:54→19:32)
[2021-03-20] MEDS: PROPOFOL 100 ML IV PRN ×10 (03:48→20:20)
[2021-03-20 05:00] LABS: HEMATOCRIT 41.4 % (36.7-47.1); MEAN CORPUSCULAR HEMOGLOBIN 25.3 uug (23.8-33.4); MEAN CORPUSCULAR VOLUME 79.5 fL (73.0-96.2); PLATELET COUNT (AUTO) 232 K/uL (152-348)
[2021-03-20 05:33] LABS: BILIRUBIN,TOTAL 0.6 mg/dL (0.2-1.0); CREATININE 0.7 mg/dL (0.6-1.3); PHOSPHOROUS 3.3 mg/dL (2.5-4.9); POTASSIUM 4.2 mmol/L (3.5-5.1); THYROID STIMULATING HORMONE 0.409 mIU/mL (0.358-3.740)
[2021-03-20 05:51] LABS: MAGNESIUM 1.1 mg/dL (1.8-2.4)
[2021-03-20] MEDS: PIPERACILLIN SODIUM/TAZOBACTAM 3.375 G in IV DEXTROSE 5% 100 ML IV SCH ×3 (06:17→21:11)
[2021-03-20] MEDS: IV D5/ 0.9% NACL 1,000 ML IV PRN (06:30)
[2021-03-20] MEDS: MAGNESIUM SULFATE/D5W 100 ML IV SCH ×4 (06:44→13:24)
[2021-03-20] MEDS ORDERED: MAGNESIUM SULFATE 2 GM in IV DEXTROSE 5% 100 ML IV ONE (07:30)
[2021-03-20] MEDS: PANTOPRAZOLE SODIUM 40 MG VIAL IV SCH (08:00)
[2021-03-20] MEDS: DEXAMETHASONE SOD PHOSPHATE 10 MG INJ IV SCH ×2 (08:00→20:12)
[2021-03-20] MEDS: ASPIRIN EC 81 MG TABLET.DR PO SCH (08:00)
[2021-03-20] MEDS: ENOXAPARIN SODIUM 40 MG/0.4 ML DISP.SYRIN SQ SCH (08:01)
[2021-03-20] MEDS: Z GUARD REMEDY PASTE 57 GM TUBE TOP SCH ×2 (08:02→20:12)
[2021-03-20 08:25] LABS: ABG BASE EXCESS -0.2 mmol/L; ABG HCO3 26.1 mmol/L; ABG PCO2 49.3 mmHg (35.0-45.0); ABG PH 7.342 (7.350-7.450); ABG PO2 104.1 mmHg (75.0-100.0); ABG SITE RIGHT RADIAL; ABG TOTAL HEMOGLOBIN 13.7 G/dL (13.5-18.0); MetHb 0.3 % (0.0-1.5); O2Hb 96.9 % (94.0-97.0); VENT MODE VENT - A/C; VT, ABG 600 mL
[2021-03-20] MEDS: DOXYCYCLINE HYCLATE IV 100 MG in IV DEXTROSE 5% 100 ML IV SCH ×2 (08:47→20:12)
[2021-03-20] MEDS: NOREPINEPHRINE BITARTRATE 32 MG in IV NORMAL SALINE 218 ML IV PRN (09:32)
[2021-03-20] MEDS ORDERED: FUROSEMIDE 40 MG/4 ML VIAL IV ONE (10:00)
[2021-03-20] MEDS ORDERED: MORPHINE SULFATE 2 MG/1 ML DISP.SYRIN IV PRN (10:45)
[2021-03-20] MEDS: IV NORMAL SALINE 250 ML IV PRN (15:42)
[2021-03-20] MEDS: ACETAMINOPHEN 325 MG TABLET PO PRN (17:34)
[2021-03-20] MEDS: ATORVASTATIN 40 MG TABLET PO SCH (20:12)
[2021-03-21] VITALS (70 sets, daily range): BP systolic 84–139; BP diastolic 43–83
[2021-03-21] MEDS: IPRATROPIUM BROMIDE 0.5 MG/2.5 ML NEBU NEB SCH ×4 (01:02→20:39)
[2021-03-21] MEDS: ALBUTEROL SULFATE 2.5 MG/3 ML NEBU NEB SCH ×4 (01:02→20:39)
[2021-03-21] MEDS: PROPOFOL 100 ML IV PRN ×13 (01:28→23:54)
[2021-03-21 05:16] LABS: HEMATOCRIT 40.5 % (36.7-47.1); MEAN CORPUSCULAR HEMOGLOBIN 25.2 uug (23.8-33.4); MEAN CORPUSCULAR VOLUME 79.4 fL (73.0-96.2); PLATELET COUNT (AUTO) 247 K/uL (152-348)
[2021-03-21] MEDS: PIPERACILLIN SODIUM/TAZOBACTAM 3.375 G in IV DEXTROSE 5% 100 ML IV SCH ×3 (05:30→20:40)
[2021-03-21 05:31] LABS: CREATININE 0.7 mg/dL (0.6-1.3); MAGNESIUM 1.4 mg/dL (1.8-2.4); PHOSPHOROUS 3.1 mg/dL (2.5-4.9); POTASSIUM 3.2 mmol/L (3.5-5.1)
[2021-03-21] MEDS: MAGNESIUM SULFATE/D5W 100 ML IV SCH ×3 (07:31→09:37)
[2021-03-21] MEDS ORDERED: POTASSIUM CHLORIDE 20 MEQ TAB.PRT.SR PO ONE (08:00)
[2021-03-21] MEDS: PANTOPRAZOLE SODIUM 40 MG VIAL IV SCH (08:02)
[2021-03-21] MEDS: DEXAMETHASONE SOD PHOSPHATE 10 MG INJ IV SCH ×2 (08:02→20:41)
[2021-03-21] MEDS: DOXYCYCLINE HYCLATE IV 100 MG in IV DEXTROSE 5% 100 ML IV SCH ×2 (08:03→20:40)
[2021-03-21] MEDS: ACETAMINOPHEN 325 MG TABLET PO PRN ×2 (08:03→12:49)
[2021-03-21] MEDS: ASPIRIN EC 81 MG TABLET.DR PO SCH (08:04)
[2021-03-21] MEDS: Z GUARD REMEDY PASTE 57 GM TUBE TOP SCH ×2 (08:05→20:41)
[2021-03-21] MEDS: ENOXAPARIN SODIUM 40 MG/0.4 ML DISP.SYRIN SQ SCH (08:06)
[2021-03-21] MEDS ORDERED: NOREPINEPHRINE BITARTRATE 8 MG in IV NORMAL SALINE 242 ML IV PRN (08:21)
[2021-03-21 08:50] LABS: ABG BASE EXCESS 4.3 mmol/L; ABG HCO3 29.4 mmol/L; ABG PCO2 45.4 mmHg (35.0-45.0); ABG PH 7.429 (7.350-7.450); ABG PO2 67.2 mmHg (75.0-100.0); ABG SITE RIGHT RADIAL; ABG TOTAL HEMOGLOBIN 14.2 G/dL (13.5-18.0); COHb 0.8 % (0.5-1.5); MetHb 0.2 % (0.0-1.5); O2Hb 92.5 % (94.0-97.0); VENT MODE VENT - A/C; VT, ABG 600 mL
[2021-03-21] MEDS: ATORVASTATIN 40 MG TABLET PO SCH (20:40)
[2021-03-22] VITALS (24 sets, daily range): BP systolic 90–116; BP diastolic 49–73
[2021-03-22] MEDS: IPRATROPIUM BROMIDE 0.5 MG/2.5 ML NEBU NEB SCH ×4 (00:42→20:08)
[2021-03-22] MEDS: ALBUTEROL SULFATE 2.5 MG/3 ML NEBU NEB SCH ×4 (00:44→20:09)
[2021-03-22] MEDS: PROPOFOL 100 ML IV PRN ×11 (01:54→22:01)
[2021-03-22 05:31] LABS: HEMATOCRIT 40.8 % (36.7-47.1); PLATELET COUNT (AUTO) 223 K/uL (152-348)
[2021-03-22 06:04] LABS: CREATININE 0.8 mg/dL (0.6-1.3); MAGNESIUM 1.9 mg/dL (1.8-2.4); PHOSPHOROUS 4.4 mg/dL (2.5-4.9)
[2021-03-22] MEDS: PIPERACILLIN SODIUM/TAZOBACTAM 3.375 G in IV DEXTROSE 5% 100 ML IV SCH (06:12)
[2021-03-22 08:34] LABS: ABG BASE EXCESS 5.2 mmol/L; ABG PCO2 44.9 mmHg (35.0-45.0); ABG PH 7.443 (7.350-7.450); ABG PO2 83.7 mmHg (75.0-100.0); ABG SITE RIGHT RADIAL; ABG TOTAL HEMOGLOBIN 13.7 G/dL (13.5-18.0); COHb 0.8 % (0.5-1.5); MetHb 0.3 % (0.0-1.5); VENT MODE VENT - A/C; VT, ABG 600 mL
[2021-03-22] MEDS: PANTOPRAZOLE SODIUM 40 MG VIAL IV SCH (09:24)
[2021-03-22] MEDS: Z GUARD REMEDY PASTE 57 GM TUBE TOP PRN (09:24)
[2021-03-22] MEDS: DEXAMETHASONE SOD PHOSPHATE 10 MG INJ IV SCH ×2 (09:24→20:43)
[2021-03-22] MEDS: ENOXAPARIN SODIUM 40 MG/0.4 ML DISP.SYRIN SQ SCH (09:25)
[2021-03-22] MEDS: ASPIRIN EC 81 MG TABLET.DR PO SCH (09:25)
[2021-03-22] MEDS: DOXYCYCLINE HYCLATE IV 100 MG in IV DEXTROSE 5% 100 ML IV SCH (09:26)
[2021-03-22] MEDS: Z GUARD REMEDY PASTE 57 GM TUBE TOP SCH ×2 (09:31→20:44)
[2021-03-22] MEDS: ATORVASTATIN 40 MG TABLET PO SCH (20:43)
[2021-03-23] VITALS (24 sets, daily range): BP systolic 107–137; BP diastolic 52–72
[2021-03-23] MEDS: PROPOFOL 100 ML IV PRN ×13 (00:21→22:59)
[2021-03-23] MEDS: IPRATROPIUM BROMIDE 0.5 MG/2.5 ML NEBU NEB SCH ×4 (02:12→19:26)
[2021-03-23] MEDS: ALBUTEROL SULFATE 2.5 MG/3 ML NEBU NEB SCH ×4 (02:12→19:26)
[2021-03-23] MEDS: IV NORMAL SALINE 250 ML IV PRN ×2 (03:35→23:48)
[2021-03-23 05:11] LABS: HEMATOCRIT 41.6 % (36.7-47.1); MEAN CORPUSCULAR HEMOGLOBIN 24.9 uug (23.8-33.4); MEAN CORPUSCULAR VOLUME 80.1 fL (73.0-96.2); PLATELET COUNT (AUTO) 228 K/uL (152-348)
[2021-03-23 05:27] LABS: CREATININE 0.7 mg/dL (0.6-1.3); MAGNESIUM 1.8 mg/dL (1.8-2.4); POTASSIUM 4.5 mmol/L (3.5-5.1)
[2021-03-23 07:31] LABS: ABG HCO3 31.1 mmol/L; ABG PCO2 46.9 mmHg (35.0-45.0); ABG PO2 82.7 mmHg (75.0-100.0); ABG SITE RIGHT RADIAL; ABG TOTAL HEMOGLOBIN 13.8 G/dL (13.5-18.0); COHb 0.7 % (0.5-1.5); MetHb 0.3 % (0.0-1.5); O2Hb 95.2 % (94.0-97.0); VENT MODE VENT - A/C; VT, ABG 600 mL
[2021-03-23] MEDS: PANTOPRAZOLE SODIUM 40 MG VIAL IV SCH (08:44)
[2021-03-23] MEDS: ASPIRIN EC 81 MG TABLET.DR PO SCH (08:44)
[2021-03-23] MEDS: DEXAMETHASONE SOD PHOSPHATE 10 MG INJ IV SCH ×2 (08:44→20:14)
[2021-03-23] MEDS: Z GUARD REMEDY PASTE 57 GM TUBE TOP SCH ×2 (08:47→20:14)
[2021-03-23] MEDS: ENOXAPARIN SODIUM 40 MG/0.4 ML DISP.SYRIN SQ SCH (08:47)
[2021-03-23] MEDS ORDERED: FUROSEMIDE 40 MG/4 ML VIAL IV ONE (09:00)
[2021-03-23] MEDS: GLUCERNA 1.2 1000ML LIQUID GT PRN (09:20)
[2021-03-23] MEDS: ATORVASTATIN 40 MG TABLET PO SCH (20:14)
[2021-03-24] VITALS (24 sets, daily range): BP systolic 101–139; BP diastolic 51–71
[2021-03-24] MEDS: ALBUTEROL SULFATE 2.5 MG/3 ML NEBU NEB SCH ×4 (01:06→19:52)
[2021-03-24] MEDS: IPRATROPIUM BROMIDE 0.5 MG/2.5 ML NEBU NEB SCH ×4 (01:06→19:52)
[2021-03-24] MEDS: PROPOFOL 100 ML IV PRN ×12 (01:51→23:54)
[2021-03-24 05:36] LABS: HEMATOCRIT 43.2 % (36.7-47.1); MEAN CORPUSCULAR HEMOGLOBIN 24.8 uug (23.8-33.4); MEAN CORPUSCULAR VOLUME 79.3 fL (73.0-96.2); PLATELET COUNT (AUTO) 224 K/uL (152-348)
[2021-03-24 05:48] LABS: CARBON DIOXIDE 32 mmol/L (21-32); CHLORIDE 100 mmol/L (98-107); CREATININE 0.6 mg/dL (0.6-1.3); GLUCOSE 144 mg/dL (74-106); MAGNESIUM 1.8 mg/dL (1.8-2.4); PHOSPHOROUS 5.6 mg/dL (2.5-4.9); TRIGLYCERIDES 330 MG/DL (30-150); UREA NITROGEN, BLOOD 24 mg/dL (7-18)
[2021-03-24] MEDS: PANTOPRAZOLE ORAL SUSPENSION 40 MG SUSPDR.PKT GT SCH (08:54)
[2021-03-24] MEDS: DEXAMETHASONE SOD PHOSPHATE 10 MG INJ IV SCH ×2 (08:54→20:58)
[2021-03-24] MEDS: ASPIRIN EC 81 MG TABLET.DR PO SCH (08:54)
[2021-03-24] MEDS: Z GUARD REMEDY PASTE 57 GM TUBE TOP SCH ×2 (08:55→21:00)
[2021-03-24] MEDS: ENOXAPARIN SODIUM 40 MG/0.4 ML DISP.SYRIN SQ SCH (08:55)
[2021-03-24 09:36] LABS: ABG BASE EXCESS 6.1 mmol/L; ABG HCO3 31.7 mmol/L; ABG PCO2 49.6 mmHg (35.0-45.0); ABG PH 7.424 (7.350-7.450); ABG PO2 80.8 mmHg (75.0-100.0); ABG SITE RIGHT RADIAL; ABG TOTAL HEMOGLOBIN 14.2 G/dL (13.5-18.0); COHb 0.7 % (0.5-1.5); MetHb 0.3 % (0.0-1.5); O2Hb 94.9 % (94.0-97.0); VENT MODE VENT - A/C; VT, ABG 600 mL
[2021-03-24] MEDS: FUROSEMIDE 20 MG TABLET PO SCH (10:49)
[2021-03-24] MEDS: IV NORMAL SALINE 250 ML IV PRN (20:54)
[2021-03-24] MEDS: ATORVASTATIN 40 MG TABLET PO SCH (20:58)
[2021-03-24] MEDS: Z GUARD REMEDY PASTE 57 GM TUBE TOP PRN (20:59)
[2021-03-25] VITALS (23 sets, daily range): BP systolic 91–135; BP diastolic 41–74
[2021-03-25] MEDS: PROPOFOL 100 ML IV PRN ×9 (02:20→23:36)
[2021-03-25] MEDS: ALBUTEROL SULFATE 2.5 MG/3 ML NEBU NEB SCH ×4 (02:30→19:33)
[2021-03-25] MEDS: IPRATROPIUM BROMIDE 0.5 MG/2.5 ML NEBU NEB SCH ×4 (02:31→19:33)
[2021-03-25 05:20] LABS: HEMATOCRIT 43.8 % (36.7-47.1); MEAN CORPUSCULAR VOLUME 80.9 fL (73.0-96.2); PLATELET COUNT (AUTO) 224 K/uL (152-348)
[2021-03-25 05:27] LABS: CARBON DIOXIDE 32 mmol/L (21-32); CHLORIDE 102 mmol/L (98-107); CREATININE 0.6 mg/dL (0.6-1.3); GLUCOSE 136 mg/dL (74-106); MAGNESIUM 1.9 mg/dL (1.8-2.4); POTASSIUM 4.1 mmol/L (3.5-5.1); TRIGLYCERIDES 311 MG/DL (30-150); UREA NITROGEN, BLOOD 28 mg/dL (7-18)
[2021-03-25] MEDS: DEXAMETHASONE SOD PHOSPHATE 10 MG INJ IV SCH ×2 (08:46→20:30)
[2021-03-25] MEDS: ASPIRIN EC 81 MG TABLET.DR PO SCH (08:46)
[2021-03-25] MEDS: PANTOPRAZOLE ORAL SUSPENSION 40 MG SUSPDR.PKT GT SCH (08:46)
[2021-03-25] MEDS: FUROSEMIDE 20 MG TABLET PO SCH (08:46)
[2021-03-25] MEDS: Z GUARD REMEDY PASTE 57 GM TUBE TOP SCH ×2 (08:47→20:28)
[2021-03-25] MEDS: ENOXAPARIN SODIUM 40 MG/0.4 ML DISP.SYRIN SQ SCH (08:48)
[2021-03-25] MEDS: GLUCERNA 1.2 1000ML LIQUID GT PRN (08:51)
[2021-03-25 09:16] LABS: ABG BASE EXCESS 5.8 mmol/L; ABG HCO3 31.2 mmol/L; ABG PCO2 47.8 mmHg (35.0-45.0); ABG PH 7.432 (7.350-7.450); ABG SITE RIGHT RADIAL; ABG TOTAL HEMOGLOBIN 14.6 G/dL (13.5-18.0); COHb 0.9 % (0.5-1.5); MetHb 0.5 % (0.0-1.5); VENT MODE VENT - A/C24; VT, ABG 600 mL
[2021-03-25] MEDS ORDERED: FUROSEMIDE 20 MG/2 ML VIAL IV ONE (12:15)
[2021-03-25] MEDS: ATORVASTATIN 40 MG TABLET PO SCH (20:30)
[2021-03-26] VITALS (19 sets, daily range): BP systolic 96–130; BP diastolic 47–65
[2021-03-26] MEDS: ALBUTEROL SULFATE 2.5 MG/3 ML NEBU NEB SCH ×4 (00:30→19:43)
[2021-03-26] MEDS: IPRATROPIUM BROMIDE 0.5 MG/2.5 ML NEBU NEB SCH ×4 (00:30→19:44)
[2021-03-26] MEDS: PROPOFOL 100 ML IV PRN ×3 (00:58→04:57)
[2021-03-26 06:26] LABS: CARBON DIOXIDE 32 mmol/L (21-32); CHLORIDE 102 mmol/L (98-107); CREATININE 0.6 mg/dL (0.6-1.3); GLUCOSE 126 mg/dL (74-106); MAGNESIUM 1.9 mg/dL (1.8-2.4); POTASSIUM 3.7 mmol/L (3.5-5.1); TRIGLYCERIDES 344 MG/DL (30-150); UREA NITROGEN, BLOOD 29 mg/dL (7-18)
[2021-03-26 06:30] LABS: HEMATOCRIT 42.6 % (36.7-47.1); MEAN CORPUSCULAR HEMOGLOBIN 25.6 uug (23.8-33.4); MEAN CORPUSCULAR VOLUME 80.5 fL (73.0-96.2); PLATELET COUNT (AUTO) 240 K/uL (152-348)
[2021-03-26] MEDS: GLUCERNA 1.2 1000ML LIQUID GT PRN (08:01)
[2021-03-26] MEDS: ASPIRIN EC 81 MG TABLET.DR PO SCH (08:06)
[2021-03-26] MEDS: DEXAMETHASONE SOD PHOSPHATE 10 MG INJ IV SCH ×2 (08:06→20:11)
[2021-03-26] MEDS: PANTOPRAZOLE ORAL SUSPENSION 40 MG SUSPDR.PKT GT SCH (08:06)
[2021-03-26 08:07] LABS: ABG BASE EXCESS 3.2 mmol/L; ABG HCO3 30.2 mmol/L; ABG PCO2 56.1 mmHg (35.0-45.0); ABG PH 7.349 (7.350-7.450); ABG PO2 84.3 mmHg (75.0-100.0); ABG SITE LEFT RADIAL; ABG TOTAL HEMOGLOBIN 14.5 G/dL (13.5-18.0); COHb 1.3 % (0.5-1.5); MetHb 0.3 % (0.0-1.5); O2Hb 93.9 % (94.0-97.0); VENT MODE VENT - CPAP
[2021-03-26] MEDS: Z GUARD REMEDY PASTE 57 GM TUBE TOP SCH ×2 (08:07→20:11)
[2021-03-26] MEDS: ENOXAPARIN SODIUM 40 MG/0.4 ML DISP.SYRIN SQ SCH (08:08)
[2021-03-26] MEDS ORDERED: FUROSEMIDE 40 MG/4 ML VIAL IV ONE (08:45)
[2021-03-26] MEDS ORDERED: POTASSIUM CHLORIDE 20 MEQ POWDER PACKET GT ONE (08:45)
[2021-03-26] MEDS ORDERED: FUROSEMIDE 20 MG TABLET PO SCH (09:00)
[2021-03-26] MEDS ORDERED: DC PROPOFOL ONCE EXTUBATED XX PRN (11:00)
[2021-03-26] MEDS: ATORVASTATIN 40 MG TABLET PO SCH (20:10)
[2021-03-27] VITALS (15 sets, daily range): BP systolic 95–121; BP diastolic 39–66
[2021-03-27] MEDS: IPRATROPIUM BROMIDE 0.5 MG/2.5 ML NEBU NEB SCH ×4 (00:50→20:47)
[2021-03-27] MEDS: ALBUTEROL SULFATE 2.5 MG/3 ML NEBU NEB SCH ×4 (00:50→20:47)
[2021-03-27 05:24] LABS: HEMATOCRIT 43.1 % (36.7-47.1); MEAN CORPUSCULAR HEMOGLOBIN 24.8 uug (23.8-33.4); MEAN CORPUSCULAR VOLUME 80.6 fL (73.0-96.2); PLATELET COUNT (AUTO) 262 K/uL (152-348)
[2021-03-27 05:34] LABS: CARBON DIOXIDE 34 mmol/L (21-32); CHLORIDE 107 mmol/L (98-107); CREATININE 0.6 mg/dL (0.6-1.3); GLUCOSE 102 mg/dL (74-106); MAGNESIUM 1.8 mg/dL (1.8-2.4); PHOSPHOROUS 5.3 mg/dL (2.5-4.9); POTASSIUM 3.9 mmol/L (3.5-5.1); UREA NITROGEN, BLOOD 28 mg/dL (7-18)
[2021-03-27 07:43] LABS: ABG BASE EXCESS 4.5 mmol/L; ABG HCO3 31.8 mmol/L; ABG PCO2 58.6 mmHg (35.0-45.0); ABG PH 7.352 (7.350-7.450); ABG PO2 65.8 mmHg (75.0-100.0); ABG SITE RIGHT RADIAL; ABG TOTAL HEMOGLOBIN 14.6 G/dL (13.5-18.0); COHb 1.8 % (0.5-1.5); MetHb 0.3 % (0.0-1.5); O2Hb 90.3 % (94.0-97.0)
[2021-03-27] MEDS: PANTOPRAZOLE SODIUM 40 MG VIAL IV SCH (08:20)
[2021-03-27] MEDS: ASPIRIN EC 81 MG TABLET.DR PO SCH (08:21)
[2021-03-27] MEDS: DEXAMETHASONE SOD PHOSPHATE 10 MG INJ IV SCH ×2 (08:21→21:00)
[2021-03-27] MEDS: FUROSEMIDE 20 MG TABLET PO SCH (08:21)
[2021-03-27] MEDS: Z GUARD REMEDY PASTE 57 GM TUBE TOP SCH ×2 (08:21→21:00)
[2021-03-27] MEDS: ENOXAPARIN SODIUM 40 MG/0.4 ML DISP.SYRIN SQ SCH (08:51)
[2021-03-27] MEDS: ATORVASTATIN 40 MG TABLET PO SCH (21:00)
[2021-03-28] VITALS: BP 103/55
[2021-03-28] MEDS: ALBUTEROL SULFATE 2.5 MG/3 ML NEBU NEB SCH ×4 (01:30→19:24)
[2021-03-28] MEDS: IPRATROPIUM BROMIDE 0.5 MG/2.5 ML NEBU NEB SCH ×4 (01:30→19:24)
[2021-03-28 04:00] VITALS: BP 112/61
[2021-03-28 07:20] LABS: HEMATOCRIT 48.6 % (36.7-47.1); MEAN CORPUSCULAR HEMOGLOBIN 24.6 uug (23.8-33.4); MEAN CORPUSCULAR VOLUME 80.9 fL (73.0-96.2); PLATELET COUNT (AUTO) 279 K/uL (152-348)
[2021-03-28 07:34] LABS: CREATININE 0.7 mg/dL (0.6-1.3); MAGNESIUM 1.8 mg/dL (1.8-2.4); PHOSPHOROUS 3.7 mg/dL (2.5-4.9); POTASSIUM 3.9 mmol/L (3.5-5.1)
[2021-03-28 09:17] VITALS: BP 89/53
[2021-03-28] MEDS: FUROSEMIDE 20 MG TABLET PO SCH (10:02)
[2021-03-28] MEDS: DEXAMETHASONE SOD PHOSPHATE 10 MG INJ IV SCH (10:03)
[2021-03-28] MEDS: ASPIRIN EC 81 MG TABLET.DR PO SCH (10:03)
[2021-03-28] MEDS: PANTOPRAZOLE SODIUM 40 MG VIAL IV SCH (10:03)
[2021-03-28] MEDS: ENOXAPARIN SODIUM 40 MG/0.4 ML DISP.SYRIN SQ SCH (10:07)
[2021-03-28] MEDS: Z GUARD REMEDY PASTE 57 GM TUBE TOP SCH ×2 (10:14→21:00)
[2021-03-28] MEDS ORDERED: MONTELUKAST SODIUM 10 MG TABLET PO PRN (13:00)
[2021-03-28] MEDS ORDERED: ALBUTEROL SULFATE 8 GM HFA.AER.AD INH PRN (13:00)
[2021-03-28] MEDS ORDERED: OLANZAPINE ZYDIS 5 MG TAB.RAPDIS PO PRN (13:00)
[2021-03-28 13:07] LABS: *BILIRUBIN,URIN NEGATIVE (NEGATIVE); *BLOOD, URINE 1+ (NEGATIVE); *CLARITY,URINE CLEAR (CLEAR); *COLOR,URINE YELLOW (YELLOW); *KETONES,URINE NEGATIVE (NEGATIVE); *UROBILINOGEN,URINE 0.2 E.U./dl (NORMAL); LEUKOCYTE ESTERASE ,URINE NEGATIVE (NEGATIVE); NITRITE, URINE NEGATIVE (NEGATIVE); PH,URINE 6.5 (5.0-8.0); UGLUCOSE NEGATIVE (NEGATIVE)
[2021-03-28 13:43] VITALS: BP 117/51
[2021-03-28 16:00] VITALS: BP 106/46
[2021-03-28] MEDS ORDERED: FLUTICASONE/SALMETEROL 250/50 INHALER IH SCH (17:00)
[2021-03-28] MEDS ORDERED: ERGOCALCIFEROL 50,000 UNIT CAPSULE PO SCH ×2 (17:00→18:00)
[2021-03-28] MEDS: risperiDONE 2 MG TABLET PO SCH (17:37)
[2021-03-28] MEDS: LAMOTRIGINE 100 MG TABLET PO SCH (17:37)
[2021-03-28] MEDS: BENZTROPINE MESYLATE 1 MG TABLET PO SCH (17:37)
[2021-03-28 18:30] LABS: BACTERIA,URINE NONE SEEN /HPF (NONE SEEN); RBC,URINE 20-50 /HPF (0-3); SQUAMOUS EPITHELIAL CELL,UR FEW /HPF (NONE SEEN); WBC,URINE 0-3 /HPF (0-3)
[2021-03-28] MEDS ORDERED: ATORVASTATIN 40 MG TABLET PO SCH (21:00)
[2021-03-28] MEDS: ATORVASTATIN 40 MG TABLET PO SCH (21:00)
[2021-03-28] MEDS ORDERED: Medication Not On Formulary EA (Rosuvastatin Calcium (Crestor) 40 MG) PO SCH (21:00)
[2021-03-28 21:22] VITALS: BP 103/53
[2021-03-29] VITALS: BP 105/46
[2021-03-29] MEDS: IPRATROPIUM BROMIDE 0.5 MG/2.5 ML NEBU NEB SCH ×3 (00:30→14:09)
[2021-03-29] MEDS: ALBUTEROL SULFATE 2.5 MG/3 ML NEBU NEB SCH ×3 (00:30→14:09)
[2021-03-29 05:00] VITALS: BP 110/49
[2021-03-29 06:51] LABS: PLATELET COUNT (AUTO) 224 K/uL (152-348)
[2021-03-29] MEDS ORDERED: PANTOPRAZOLE SODIUM 40 MG TABLET.DR PO SCH (07:00)
[2021-03-29 07:29] LABS: CARBON DIOXIDE 32 mmol/L (21-32); CHLORIDE 105 mmol/L (98-107); CREATININE 0.5 mg/dL (0.6-1.3); GLUCOSE 85 mg/dL (74-106); MAGNESIUM 1.7 mg/dL (1.8-2.4); POTASSIUM 3.5 mmol/L (3.5-5.1); UREA NITROGEN, BLOOD 20 mg/dL (7-18)
[2021-03-29] MEDS: ENOXAPARIN SODIUM 40 MG/0.4 ML DISP.SYRIN SQ SCH (08:50)
[2021-03-29] MEDS: BENZTROPINE MESYLATE 1 MG TABLET PO SCH (08:53)
[2021-03-29] MEDS: FUROSEMIDE 20 MG TABLET PO SCH (08:53)
[2021-03-29] MEDS: LAMOTRIGINE 100 MG TABLET PO SCH (08:53)
[2021-03-29] MEDS: risperiDONE 2 MG TABLET PO SCH (08:54)
[2021-03-29] MEDS: Z GUARD REMEDY PASTE 57 GM TUBE TOP SCH (08:56)
[2021-03-29] MEDS ORDERED: DEXAMETHASONE SOD PHOSPHATE 10 MG INJ IV SCH (09:00)
[2021-03-29] MEDS ORDERED: FENOFIBRATE NANOCRYSTALLIZED 145 MG TABLET PO SCH (09:00)
[2021-03-29] MEDS ORDERED: ASPIRIN 81 MG TAB.CHEW PO SCH (09:00)
[2021-03-29] MEDS ORDERED: Medication Not On Formulary EA (Fenofibrate 160 MG) PO SCH (09:00)
[2021-03-29] MEDS ORDERED: LINZESS 145MG - PATIENT MAY USE OWN MED- MD OK PO SCH (09:00)
[2021-03-29] MEDS ORDERED: Medication Not On Formulary EA (Linaclotide (Linzess) 145 MCG) PO SCH (09:00)
[2021-03-29] MEDS ORDERED: FLUTICASONE/VILANTEROL 1 EACH BLST.W.DEV INH SCH (09:00)
[2021-03-29] MEDS ORDERED: Medication Not On Formulary EA (Omeprazole 20 MG) PO SCH (09:00)
[2021-03-29] MEDS ORDERED: PALIPERIDONE PALMITATE 156 MG/ML SYRINGE IM SCH (09:15)
[2021-03-29 09:45] LABS: ABG BASE EXCESS 5.7 mmol/L; ABG HCO3 31.7 mmol/L; ABG PCO2 50.9 mmHg (35.0-45.0); ABG PH 7.412 (7.350-7.450); ABG PO2 44.3 mmHg (75.0-100.0); ABG SITE LEFT RADIAL; ABG TOTAL HEMOGLOBIN 15.2 G/dL (13.5-18.0); COHb 2.5 % (0.5-1.5); MetHb 0.2 % (0.0-1.5); O2Hb 80.2 % (94.0-97.0); VENT MODE Nasal Cannula
[2021-03-29 11:06] VITALS: BP 124/85
[2021-03-29] MEDS ORDERED: MAGNESIUM OXIDE 400 MG TABLET PO ONE (11:30)
[2021-03-29] MEDS ORDERED: METH4TAB3 PO (12:16)
[2021-03-29] MEDS ORDERED: FURO20TA4 PO (12:16)
[2021-03-29 15:02] VITALS: BP 119/54
[2021-04-27] MEDS ORDERED: PALIPERIDONE PALMITATE 234 MG/1.5 ML SYRINGE IM SCH (09:00)
== END 2021-03-29 16:45 | disposition home health service (06) | DRG 870 ==
LOC: ER 22:54 → CCU 03-19 02:58 → TELE3 03-27 13:56
PROVIDERS: ADMIT Hospitalist; ATTEND Hospitalist
PROC: 5A1955Z Respiratory Ventilation, Greater than 96 Consecutive Hours (ICD-10-PCS; principal; 2021-03-19)
PROC: 0BH17EZ Insertion of Endotracheal Airway into Trachea, Via Natural or Artificial Opening (ICD-10-PCS; 2021-03-19)
PROC: 02HV33Z Insertion of Infusion Device into Superior Vena Cava, Percutaneous Approach (ICD-10-PCS; 2021-03-19)
DX: A41.9 Sepsis, unspecified organism (principal); J96.01 Acute respiratory failure with hypoxia; I50.33 Acute on chronic diastolic (congestive) heart failure; J96.02 Acute respiratory failure with hypercapnia; G93.41 Metabolic encephalopathy; J15.6 Pneumonia due to other Gram-negative bacteria; E66.2 Morbid (severe) obesity with alveolar hypoventilation; I11.0 Hypertensive heart disease with heart failure; E78.5 Hyperlipidemia, unspecified; E11.9 Type 2 diabetes mellitus without complications; Z91.14 Patient's other noncompliance with medication regimen; Z68.37 Body mass index [BMI] 37.0-37.9, adult; I25.10 Atherosclerotic heart disease of native coronary artery without angina pectoris; Z20.822 Contact with and (suspected) exposure to COVID-19; Z86.16 Personal history of COVID-19
CPT/HCPCS: 36415; 36600; 70030-TC; 71045; 83605; 83615; 83735; 84100; 84443; 84478; 85025; 85730; 86140; 87040; 87070; 87086; 87400; 93005; 94002; 94003; 94640; 94660; 94664; 97161; A4663; A6209; C9113; G0378; J0330; J1100; J1650; J1815; J1940; J2270; J2543; J3475; J3490; J3590; J7042; J7050; J7060; J7120; U0003

== ENCOUNTER 2022-03-14 23:06 | Inpatient (IN) | payer MEDICARE, OTHER ==
[~2022-03-14] VITALS: Ht 180.3 cm; Wt 107.0 kg
[~2022-03-14 23:06] MED LIST changes: +BENZ1TAB7 PO; +FENO160T PO; +METH4TAB3 PO; +RISP4TAB70 PO
[2022-03-14] MEDS ORDERED: NITROGLYCERIN OINT 1 GM PACKET TP ONE ×2 (23:15→23:50)
[2022-03-14] MEDS ORDERED: ASPIRIN 325 MG TABLET PO ONE (23:15)
[2022-03-14] MEDS ORDERED: FUROSEMIDE 40 MG/4 ML VIAL IV ONE (23:45)
[2022-03-14 23:47] LABS: MEAN CORPUSCULAR HEMOGLOBIN 32.1 uug (23.8-33.4); MEAN CORPUSCULAR VOLUME 103.1 fL (73.0-96.2); PLATELET COUNT (AUTO) 131 K/uL (152-348)
[2022-03-14] MEDS ORDERED: FUROSEMIDE 40 MG/4 ML VIAL ONE (23:49)
[2022-03-14] MEDS ORDERED: ASPIRIN 325 MG TABLET ONE (23:50)
[2022-03-14 23:55] LABS: HEMATOCRIT 62.6 % (36.7-47.1)
[2022-03-14 23:56] LABS: ABG BASE EXCESS -3.7 mmol/L; ABG HCO3 27.9 mmol/L; ABG PCO2 76.7 mmHg (35.0-45.0); ABG PH 7.178 (7.350-7.450); ABG PO2 85.6 mmHg (75.0-100.0); ABG SITE RIGHT RADIAL; ABG TOTAL HEMOGLOBIN 20.8 G/dL (13.5-18.0); COHb 9.7 % (0.5-1.5); MetHb 0.6 % (0.0-1.5); O2Hb 85.7 % (94.0-97.0)
[2022-03-15 00:09] LABS: CARBON DIOXIDE 30 mmol/L (21-32); CHLORIDE 98 mmol/L (98-107); CREATININE 0.9 mg/dL (0.6-1.3); GLUCOSE 178 mg/dL (74-106); UREA NITROGEN, BLOOD 25 mg/dL (7-18)
[2022-03-15 00:11] LABS: POTASSIUM 10.7 mmol/L (3.5-5.1)
[2022-03-15] MEDS ORDERED: ALBUTEROL SULFATE 2.5 MG/3 ML NEBU ONE (00:12)
[2022-03-15] MEDS ORDERED: IPRATROPIUM BROMIDE 0.5 MG/2.5 ML NEBU ONE (00:12)
[2022-03-15] MEDS ORDERED: ALBUTEROL SULFATE 2.5 MG/3 ML NEBU NEB ONE (00:15)
[2022-03-15] MEDS ORDERED: IPRATROPIUM BROMIDE 0.5 MG/2.5 ML NEBU NEB ONE (00:15)
--- NOTE | 2022-03-15 00:24 | NUR ---
Pt. in bed, eyes closed. CPAP in placed by RT. gave all due meds as ordered. IV on R arm SL
[2022-03-15 00:25] LABS: ALKALINE PHOSPHATASE 27 U/L (50-136); ASPARTATE AMINOTRANSFERASE 231 U/L (15-37); BILIRUBIN,DIRECT < 0.1 mg/dL (0.0-0.2); BILIRUBIN,TOTAL 0.2 mg/dL (0.2-1.0); TOTAL PROTEIN, SERUM 6.9 g/dL (6.4-8.2)
[2022-03-15] MEDS ORDERED: MAGNESIUM SULFATE/D5W 100 ML ONE (00:29)
[2022-03-15] MEDS: MAGNESIUM SULFATE/D5W 100 ML IV SCH ×4 (00:30→03:32)
--- NOTE | 2022-03-15 00:31 | NUR ---
Called [facility] for panel call, HARRISON SUAREZ substation supervisor.
[2022-03-15 00:36] LABS: ALANINE AMINOTRANSFERASE < 6 U/L (16-63)
[2022-03-15 00:51] LABS: LYMPHOCYTES % (MANUAL) 16 % (20-40); MONOCYTES % (MANUAL) 6 % (2-10); NEUTROPHILS % (MANUAL) 78 % (42-75)
[2022-03-15] MEDS ORDERED: MAGNESIUM SULFATE/D5W 300 ML ONE (01:09)
[2022-03-15] MEDS ORDERED: CYANOCOBALAMIN 1000 MCG/ML VIAL SUBCUT ONE (01:45)
[2022-03-15] MEDS ORDERED: CYANOCOBALAMIN 1000 MCG/ML VIAL ONE (01:58)
[2022-03-15] MEDS ORDERED: ACETAMINOPHEN 325 MG TABLET PO PRN (02:00)
[2022-03-15] MEDS ORDERED: DEXTROSE 50% 50 ML DISP.SYRIN IV PRN (02:00)
[2022-03-15] MEDS ORDERED: REMEDY ESSENTIAL ZINC PASTE 113 GM TP PRN (02:00)
[2022-03-15] MEDS ORDERED: MAGNESIUM HYDROXIDE 30 ML LIQUID UDC PO PRN (02:00)
[2022-03-15] MEDS ORDERED: ENOXAPARIN SODIUM 40 MG/0.4 ML DISP.SYRIN SQ SCH (02:00)
[2022-03-15] MEDS ORDERED: ONDANSETRON 4 MG/2 ML VIAL IV PRN (02:00)
[2022-03-15 02:56] LABS: ABG PH 7.232 (7.350-7.450); ABG PO2 87.6 mmHg (75.0-100.0); ABG SITE RIGHT RADIAL; ABG TOTAL HEMOGLOBIN 19.3 G/dL (13.5-18.0); COHb 8.5 % (0.5-1.5); MetHb 0.7 % (0.0-1.5); O2Hb 85.6 % (94.0-97.0); VENT MODE BIPAP
[2022-03-15 03:21] LABS: CREATININE 1.1 mg/dL (0.6-1.3); POTASSIUM 4.4 mmol/L (3.5-5.1)
[2022-03-15] MEDS: PANTOPRAZOLE SODIUM 40 MG TABLET.DR PO SCH (07:00)
--- NOTE | 2022-03-15 07:03 | NUR ---
quincy collected, sent to lab
[2022-03-15] MEDS: BLOOD SUGAR DIAGNOSTIC 1 EACH STRIP VI SCH ×4 (07:30→21:00)
--- NOTE | 2022-03-15 07:58 | NUR ---
Pt's V/S: BP = 125/83, HR = 84, RR = 16, O2 Sat = 89%, T = 98.3.
--- NOTE | 2022-03-15 08:00 | NUR ---
Transported to [facility] via stretcher, accompanied by 1 RN and 1 RT. Pt was stable, V/S WNL. Pt was soaking wet d/t sweat, changed by 2 RNs and 1 FRONT DESK ADMINISTRATOR.
[2022-03-15 08:09] VITALS: BP 125/79
[2022-03-15 08:28] LABS: MEAN CORPUSCULAR VOLUME 103.1 fL (73.0-96.2); PLATELET COUNT (AUTO) 120 K/uL (152-348)
[2022-03-15 08:45] LABS: HEMATOCRIT 62.2 % (36.7-47.1)
[2022-03-15 08:48] LABS: BILIRUBIN,TOTAL 0.6 mg/dL (0.2-1.0); CREATININE 1.1 mg/dL (0.6-1.3); MAGNESIUM 1.9 mg/dL (1.8-2.4); TOTAL PROTEIN, SERUM 6.9 g/dL (6.4-8.2)
[2022-03-15] MEDS: ENOXAPARIN SODIUM 40 MG/0.4 ML DISP.SYRIN SQ SCH (09:00)
[2022-03-15] MEDS: DOXYCYCLINE HYCLATE 100 MG TABLET PO SCH ×2 (09:00→21:00)
[2022-03-15 12:00] VITALS: BP 114/71
[2022-03-15] MEDS ORDERED: METO2.5T2 PO (12:44)
[2022-03-15] MEDS ORDERED: FERR325T28 PO (12:44)
[2022-03-15] MEDS ORDERED: BUME1TAB8 PO (12:44)
[2022-03-15] MEDS ORDERED: IBUP-1955 PO (12:44)
[2022-03-15] MEDS: IPRATROPIUM BROMIDE 0.5 MG/2.5 ML NEBU NEB SCH ×2 (13:25→21:19)
[2022-03-15] MEDS: ALBUTEROL SULFATE 2.5 MG/3 ML NEBU NEB SCH ×2 (13:26→21:19)
--- NOTE | 2022-03-15 14:18 | NUR ---
SLEEPING QUIETLY MOST OF SHIFT WITH BIPAP ON SINCE HE CAME FROM ER. NOT EATING AT THIS TIME. BREAKFAST AND LUNCH REFUSED. WAKES UP FOR A FEW SECONDS WHEN APPROACHED THEN BACT TO SLEEP.
[2022-03-15 16:00] VITALS: BP 110/74
[2022-03-15 20:00] VITALS: BP 115/67
[2022-03-15] MEDS: methylPREDNISolone SOD SUCC 40 MG/ML VIAL IV SCH (22:13)
[2022-03-16] MEDS: ALBUTEROL SULFATE 2.5 MG/3 ML NEBU NEB SCH ×4 (00:12→20:42)
[2022-03-16] MEDS: IPRATROPIUM BROMIDE 0.5 MG/2.5 ML NEBU NEB SCH ×4 (00:12→20:42)
[2022-03-16 00:13] VITALS: BP 122/72
[2022-03-16 04:00] VITALS: BP 138/82
[2022-03-16] MEDS: methylPREDNISolone SOD SUCC 40 MG/ML VIAL IV SCH ×3 (06:16→21:32)
[2022-03-16] MEDS: PANTOPRAZOLE SODIUM 40 MG TABLET.DR PO SCH (06:16)
[2022-03-16 06:45] LABS: MEAN CORPUSCULAR HEMOGLOBIN 31.9 uug (23.8-33.4); MEAN CORPUSCULAR VOLUME 103.4 fL (73.0-96.2); PLATELET COUNT (AUTO) 116 K/uL (152-348)
--- NOTE | 2022-03-16 06:53 | NUR ---
Patient lethargic at the [id number] of shift. More alert this am Follows commands Bipap settings unchanged Saturation 92-94.
[2022-03-16 06:56] LABS: HEMATOCRIT 61.1 % (36.7-47.1)
[2022-03-16 06:58] LABS: MAGNESIUM 1.6 mg/dL (1.8-2.4); PHOSPHOROUS 4.8 mg/dL (2.5-4.9)
[2022-03-16 07:24] LABS: ABG BASE EXCESS 0.5 mmol/L; ABG HCO3 32.2 mmol/L; ABG PH 7.222 (7.350-7.450); ABG PO2 70.8 mmHg (75.0-100.0); ABG SITE RIGHT RADIAL; ABG TOTAL HEMOGLOBIN 20.6 G/dL (13.5-18.0); COHb 3.1 % (0.5-1.5); MetHb 0.7 % (0.0-1.5); VENT MODE BIPAP
[2022-03-16] MEDS: BLOOD SUGAR DIAGNOSTIC 1 EACH STRIP VI SCH ×4 (07:27→21:27)
[2022-03-16 08:00] VITALS: BP 137/79
--- NOTE | 2022-03-16 08:10 | NUR ---
Bipap settings 15/5 60%
[2022-03-16] MEDS: DOXYCYCLINE HYCLATE 100 MG TABLET PO SCH ×2 (09:37→21:08)
[2022-03-16] MEDS: ENOXAPARIN SODIUM 40 MG/0.4 ML DISP.SYRIN SQ SCH (09:41)
[2022-03-16] MEDS: MAGNESIUM SULFATE/D5W 100 ML IV SCH ×2 (10:37→11:19)
[2022-03-16 10:41] LABS: BAND % (MANUAL) 1 % (0-10); LYMPHOCYTES % (MANUAL) 3 % (20-40); MONOCYTES % (MANUAL) 1 % (2-10); NEUTROPHILS % (MANUAL) 95 % (42-75)
[2022-03-16 12:00] VITALS: BP 134/71
[2022-03-16] MEDS: INSULIN REGULAR, HUMAN 300 UNIT/3 ML VIAL SQ PRN ×3 (12:20→21:27)
[2022-03-16] MEDS ORDERED: FUROSEMIDE 40 MG/4 ML VIAL IV ONE (13:00)
[2022-03-16] MEDS: ASPIRIN 81 MG TAB.CHEW PO SCH (13:15)
[2022-03-16] MEDS: FENOFIBRATE NANOCRYSTALLIZED 145 MG TABLET PO SCH (13:15)
[2022-03-16 16:00] VITALS: BP 114/66
[2022-03-16] MEDS: LAMOTRIGINE 100 MG TABLET PO SCH (17:00)
[2022-03-16] MEDS: BENZTROPINE MESYLATE 1 MG TABLET PO SCH (17:00)
[2022-03-16] MEDS ORDERED: FERROUS SULFATE 325 MG TABEC PO SCH (17:00)
[2022-03-16] MEDS: HYDROXYUREA 500 MG CAPSULE PO SCH (17:45)
[2022-03-16 20:00] VITALS: BP 112/67
[2022-03-16] MEDS: risperiDONE 2 MG TABLET PO SCH (21:08)
[2022-03-16] MEDS: ATORVASTATIN 20 MG TABLET PO SCH (21:08)
[2022-03-16] MEDS: ENOXAPARIN SODIUM 120 MG/0.8 ML SYRINGE SQ SCH (21:10)
[2022-03-17] VITALS: BP 102/62
[2022-03-17] MEDS: IPRATROPIUM BROMIDE 0.5 MG/2.5 ML NEBU NEB SCH ×4 (03:34→20:46)
[2022-03-17] MEDS: ALBUTEROL SULFATE 2.5 MG/3 ML NEBU NEB SCH ×4 (03:34→20:46)
[2022-03-17 04:00] VITALS: BP 102/60
[2022-03-17] MEDS: methylPREDNISolone SOD SUCC 40 MG/ML VIAL IV SCH ×3 (06:24→22:00)
[2022-03-17] MEDS: PANTOPRAZOLE SODIUM 40 MG TABLET.DR PO SCH (06:24)
[2022-03-17 06:51] LABS: THYROID STIMULATING HORMONE 0.262 mIU/mL (0.358-3.740)
[2022-03-17 06:54] LABS: HEMATOCRIT 58.5 % (36.7-47.1); MEAN CORPUSCULAR HEMOGLOBIN 31.8 uug (23.8-33.4); MEAN CORPUSCULAR VOLUME 101.1 fL (73.0-96.2); PLATELET COUNT (AUTO) 120 K/uL (152-348)
[2022-03-17] MEDS ORDERED: PANTOPRAZOLE SODIUM 40 MG TABLET.DR PO SCH (07:00)
[2022-03-17 07:02] LABS: CREATININE 0.9 mg/dL (0.6-1.3); MAGNESIUM 1.7 mg/dL (1.8-2.4); PHOSPHOROUS 3.4 mg/dL (2.5-4.9); POTASSIUM 4.9 mmol/L (3.5-5.1); URIC ACID 8.5 mg/dL (3.5-7.2)
--- NOTE | 2022-03-17 07:10 | NUR ---
Patient stable throughout the night. O2 saturation flucyuates to 96-98% when pt ic with head 45 degres.
[2022-03-17 07:40] VITALS: BP 114/60
[2022-03-17 07:59] LABS: LYMPHOCYTES % (MANUAL) 8 % (20-40); MONOCYTES % (MANUAL) 6 % (2-10); NEUTROPHILS % (MANUAL) 86 % (42-75)
--- NOTE | 2022-03-17 08:00 | NUR ---
AWAKE ALERT AND VERBALLY RESPONSIVE TOLERATING BIPAP SETTINGS 20/5-20-50, DENIES PAIN NO SS OF AUTE DISTRESS. FAIR APPETITE WITH BREAKFAST. SUPERVISED WITH MEALS. SR ON MONITOR.
[2022-03-17] MEDS: BLOOD SUGAR DIAGNOSTIC 1 EACH STRIP VI SCH ×4 (08:19→21:00)
[2022-03-17] MEDS: ASPIRIN 81 MG TAB.CHEW PO SCH (08:20)
[2022-03-17] MEDS: LAMOTRIGINE 100 MG TABLET PO SCH ×2 (08:24→16:51)
[2022-03-17] MEDS: FENOFIBRATE NANOCRYSTALLIZED 145 MG TABLET PO SCH (08:24)
[2022-03-17] MEDS: BENZTROPINE MESYLATE 1 MG TABLET PO SCH ×2 (08:24→16:51)
[2022-03-17] MEDS: risperiDONE 2 MG TABLET PO SCH ×2 (08:25→21:00)
[2022-03-17] MEDS: DOXYCYCLINE HYCLATE 100 MG TABLET PO SCH ×2 (08:25→21:00)
[2022-03-17] MEDS: HYDROXYUREA 500 MG CAPSULE PO SCH (08:27)
[2022-03-17] MEDS: ENOXAPARIN SODIUM 120 MG/0.8 ML SYRINGE SQ SCH (08:49)
[2022-03-17] MEDS ORDERED: ERGOCALCIFEROL 50,000 UNIT CAPSULE PO SCH (09:00)
[2022-03-17 11:34] VITALS: BP 116/64
[2022-03-17] MEDS: INSULIN REGULAR, HUMAN 300 UNIT/3 ML VIAL SQ PRN ×2 (11:54→16:47)
--- NOTE | 2022-03-17 12:00 | NUR ---
NO ACUTE CHANGE FROM MORNING ASSESSMENT, SEEN BY DR AGUILAR EMG TECHNICIAN WITH ORDERS. AWAITING CARDIO RECOMMENDATION
[2022-03-17] MEDS ORDERED: FUROSEMIDE 40 MG/4 ML VIAL IV ONE (13:30)
[2022-03-17] MEDS: MAGNESIUM SULFATE/D5W 100 ML IV SCH ×2 (13:34→14:47)
[2022-03-17 16:30] VITALS: BP 115/57
--- NOTE | 2022-03-17 17:22 | NUR ---
PATIENT TOLERATING 15L VIA SIMPLE MASK. SATURATING 95%. NO SS OF PAIN OR DISTRESS CONTINUE WITH AVELINO STATUS ADVISED
--- NOTE | 2022-03-17 19:30 | NUR ---
RECEIVED PT A;EEP ON L SIDE WITH O2 AT 15L NC. RESP IS UNLABORED. NO DISTRESS. BIPAP ON STANDBY.
[2022-03-17 20:00] VITALS: BP 101/72
[2022-03-17] MEDS: ENOXAPARIN SODIUM 80 MG/0.8 ML DISP.SYRIN SQ SCH (21:00)
[2022-03-17] MEDS ORDERED: ENOXAPARIN SODIUM 120 MG/0.8 ML SYRINGE SQ SCH (21:00)
[2022-03-17] MEDS: ATORVASTATIN 20 MG TABLET PO SCH (21:00)
[2022-03-17] MEDS: ENOXAPARIN SODIUM 30 MG/0.3 ML DISP.SYRIN SQ SCH (21:00)
--- NOTE | 2022-03-17 23:22 | NUR ---
PT REFUSED NURSING CARE. NO ACCUCHECK DONE. PATIENT SAID COME BACK LATE, CHARGE NURSE NOTIFIED.
[2022-03-18] VITALS: BP 101/72
--- NOTE | 2022-03-18 01:00 | NUR ---
PT TAKES HIS MEDS AT THIS TIME. PT IS IN NO DISTRESS. O2SAT 94
[2022-03-18] MEDS: IPRATROPIUM BROMIDE 0.5 MG/2.5 ML NEBU NEB SCH ×4 (01:30→20:20)
[2022-03-18] MEDS: ALBUTEROL SULFATE 2.5 MG/3 ML NEBU NEB SCH ×4 (01:30→20:21)
[2022-03-18 04:00] VITALS: BP 112/72
[2022-03-18] MEDS: methylPREDNISolone SOD SUCC 40 MG/ML VIAL IV SCH ×3 (06:52→21:03)
[2022-03-18] MEDS: PANTOPRAZOLE SODIUM 40 MG TABLET.DR PO SCH (07:33)
[2022-03-18 07:44] VITALS: BP 121/71
[2022-03-18] MEDS: BLOOD SUGAR DIAGNOSTIC 1 EACH STRIP VI SCH ×4 (07:57→20:38)
[2022-03-18 08:12] LABS: CREATININE 0.9 mg/dL (0.6-1.3); MAGNESIUM 1.8 mg/dL (1.8-2.4); PHOSPHOROUS 4.2 mg/dL (2.5-4.9); POTASSIUM 5.3 mmol/L (3.5-5.1)
[2022-03-18 08:34] LABS: HEMATOCRIT 59.2 % (36.7-47.1); MEAN CORPUSCULAR HEMOGLOBIN 31.3 uug (23.8-33.4); MEAN CORPUSCULAR VOLUME 102.9 fL (73.0-96.2); PLATELET COUNT (AUTO) 141 K/uL (152-348)
--- NOTE | 2022-03-18 08:35 | NUR ---
RT at bedside, placed on 3l/nc - sat at 91%, no distress noted, up in chair with assist, breakfast taken- good appetite, am care done, safety measures viola rolon, call light within reach
[2022-03-18] MEDS: DOXYCYCLINE HYCLATE 100 MG TABLET PO SCH ×2 (08:38→20:08)
[2022-03-18] MEDS: risperiDONE 2 MG TABLET PO SCH ×2 (08:38→20:08)
[2022-03-18] MEDS: ASPIRIN 81 MG TAB.CHEW PO SCH (08:38)
[2022-03-18] MEDS: FENOFIBRATE NANOCRYSTALLIZED 145 MG TABLET PO SCH (08:38)
[2022-03-18] MEDS: LAMOTRIGINE 100 MG TABLET PO SCH ×2 (08:39→16:31)
[2022-03-18] MEDS: BENZTROPINE MESYLATE 1 MG TABLET PO SCH ×2 (08:39→16:31)
[2022-03-18] MEDS: HYDROXYUREA 500 MG CAPSULE PO SCH (08:40)
[2022-03-18] MEDS: ENOXAPARIN SODIUM 30 MG/0.3 ML DISP.SYRIN SQ SCH (08:40)
[2022-03-18] MEDS: ENOXAPARIN SODIUM 80 MG/0.8 ML DISP.SYRIN SQ SCH (08:42)
--- NOTE | 2022-03-18 10:00 | NUR ---
back to bed, will continue to monitor
[2022-03-18] MEDS: INSULIN REGULAR, HUMAN 300 UNIT/3 ML VIAL SQ PRN ×3 (11:45→20:37)
[2022-03-18] MEDS: FUROSEMIDE 40 MG/4 ML VIAL IV SCH ×2 (11:46→20:08)
[2022-03-18 15:09] LABS: BAND % (MANUAL) 1 % (0-10); LYMPHOCYTES % (MANUAL) 15 % (20-40)
[2022-03-18 15:10] LABS: MONOCYTES % (MANUAL) 6 % (2-10); NEUTROPHILS % (MANUAL) 78 % (42-75)
--- NOTE | 2022-03-18 15:28 | NUR ---
seen by HARRISON Ruelas with orders
[2022-03-18] MEDS ORDERED: HYDROXYUREA 500 MG CAPSULE PO ONE (16:00)
--- NOTE | 2022-03-18 16:30 | NUR ---
pt informed of CTA chest ordered- states he doesnt want it done today- will speak to [employer] Des[employer] first tomorrow, refused to have a bigger iv gauge for the contrast and to answer question and sign the consent for contrst administration- states will do in am
[2022-03-18 16:32] VITALS: BP 129/69
--- NOTE | 2022-03-18 18:26 | NUR ---
resting in bed, remains on 3l/nc sat at 92%, no distress noted, all needs attended and met, call light within reach
[2022-03-18 20:06] VITALS: BP 127/69
[2022-03-18] MEDS: ATORVASTATIN 20 MG TABLET PO SCH (20:08)
[2022-03-18] MEDS: ENOXAPARIN SODIUM 60 MG/0.6 ML DISP.SYRIN SQ SCH (20:10)
[2022-03-19] VITALS: BP 130/71
[2022-03-19] MEDS: ALBUTEROL SULFATE 2.5 MG/3 ML NEBU NEB SCH ×4 (00:36→19:37)
[2022-03-19] MEDS: IPRATROPIUM BROMIDE 0.5 MG/2.5 ML NEBU NEB SCH ×4 (00:36→19:37)
[2022-03-19] MEDS: PANTOPRAZOLE SODIUM 40 MG TABLET.DR PO SCH (05:49)
[2022-03-19] MEDS: methylPREDNISolone SOD SUCC 40 MG/ML VIAL IV SCH ×2 (05:49→21:16)
[2022-03-19 06:00] VITALS: BP 110/66
[2022-03-19] MEDS: BLOOD SUGAR DIAGNOSTIC 1 EACH STRIP VI SCH ×4 (06:19→21:31)
--- NOTE | 2022-03-19 07:30 | NUR ---
AWAKE ALERT AND VERBALLY RESPONSIVE, NO SS OF PAIN OR DISTRESS WITH 3L NC SATURATING 94%. TOLERATING GETTING AND SITTING UP ON CHAIR WITH SUPERVISION. SR ON MONITOR
[2022-03-19 07:46] LABS: HEMATOCRIT 60.5 % (36.7-47.1); MEAN CORPUSCULAR HEMOGLOBIN 31.9 uug (23.8-33.4); PLATELET COUNT (AUTO) 141 K/uL (152-348)
[2022-03-19 08:13] LABS: CREATININE 0.9 mg/dL (0.6-1.3); MAGNESIUM 1.6 mg/dL (1.8-2.4); PHOSPHOROUS 4.2 mg/dL (2.5-4.9); POTASSIUM 4.5 mmol/L (3.5-5.1)
[2022-03-19] MEDS: FUROSEMIDE 40 MG/4 ML VIAL IV SCH ×2 (08:22→21:17)
[2022-03-19] MEDS: BENZTROPINE MESYLATE 1 MG TABLET PO SCH ×2 (08:22→17:10)
[2022-03-19] MEDS: ENOXAPARIN SODIUM 60 MG/0.6 ML DISP.SYRIN SQ SCH ×2 (08:22→21:18)
[2022-03-19] MEDS: DOXYCYCLINE HYCLATE 100 MG TABLET PO SCH ×2 (08:22→21:15)
[2022-03-19] MEDS: risperiDONE 2 MG TABLET PO SCH ×2 (08:23→21:16)
[2022-03-19] MEDS: FENOFIBRATE NANOCRYSTALLIZED 145 MG TABLET PO SCH (08:23)
[2022-03-19] MEDS: LAMOTRIGINE 100 MG TABLET PO SCH ×2 (08:23→16:25)
[2022-03-19] MEDS: ASPIRIN 81 MG TAB.CHEW PO SCH (08:36)
[2022-03-19] MEDS ORDERED: HYDROXYUREA 500 MG CAPSULE PO SCH (09:00)
[2022-03-19 09:15] LABS: ABG BASE EXCESS 11.6 mmol/L; ABG HCO3 41.1 mmol/L; ABG PCO2 67.6 mmHg (35.0-45.0); ABG PH 7.402 (7.350-7.450); ABG PO2 47.8 mmHg (75.0-100.0); ABG SITE LEFT RADIAL; COHb 2.5 % (0.5-1.5); MetHb 0.3 % (0.0-1.5); O2Hb 81.6 % (94.0-97.0); VENT MODE Nasal Cannula
[2022-03-19] MEDS ORDERED: MAGNESIUM SULFATE/D5W 100 ML IV SCH (09:15)
[2022-03-19] MEDS: MAGNESIUM SULFATE/D5W 100 ML IV SCH ×4 (10:27→14:09)
[2022-03-19] MEDS: INSULIN REGULAR, HUMAN 300 UNIT/3 ML VIAL SQ PRN ×2 (11:32→16:36)
[2022-03-19 11:43] VITALS: BP 126/68
--- NOTE | 2022-03-19 12:00 | NUR ---
NO ACUTE CHANGE FROM MORNING ASSESSMENT, TOLERATING 3L NC SATURATING 95%. STILL WITH SLIGHT SOB ON EXERTION, PATIENT TOLERATED PHYSICAL THERAPY EXEERCISES SEE NOTES
[2022-03-19 12:06] LABS: A/G RATIO 1.1 (0.7-1.7); ALBUMIN 2.8 g/dL (2.9-4.4); ALPHA-1-GLOBULIN 0.3 g/dL (0.0-0.4); ALPHA-2-GLOBULIN 0.7 g/dL (0.4-1.0); BETA GLOBULIN 0.9 g/dL (0.7-1.3); GAMMA GLOBULIN 0.7 g/dL (0.4-1.8); GLOBULIN, TOTAL 2.5 g/dL (2.2-3.9); M-SPIKE Not Observed g/dL (Not Observed)
[2022-03-19] MEDS ORDERED: ALLOPURINOL 100 MG TABLET PO SCH ×2 (15:15→17:00)
[2022-03-19 15:52] VITALS: BP 118/62
[2022-03-19] MEDS ORDERED: HYDROXYUREA 500 MG CAPSULE PO ONE ×2 (16:00→18:00)
[2022-03-19] MEDS ORDERED: IOHEXOL 350 100 ML INFUS..BTL ONE (16:17)
[2022-03-19] MEDS ORDERED: SWABABLE VALVE TRANSFER SET EA MC ONE (16:18)
[2022-03-19] MEDS ORDERED: IV NORMAL SALINE 250 ML IV ONE (16:18)
[2022-03-19] MEDS: ALLOPURINOL 300 MG TABLET PO SCH (16:25)
--- NOTE | 2022-03-19 16:54 | NUR ---
PATIENT AGREED CTA CHEST, CONSENT SIGNED. SEEN BY ONCOLOGIST VP [employer] WITH ORDERS. CONTINUE AVELINO OBSERVATION TILL FURTHER ORDERS
[2022-03-19 20:54] VITALS: BP 121/76
[2022-03-19] MEDS: ATORVASTATIN 20 MG TABLET PO SCH (21:16)
[2022-03-20] MEDS: ALBUTEROL SULFATE 2.5 MG/3 ML NEBU NEB SCH ×3 (01:38→13:05)
[2022-03-20] MEDS: IPRATROPIUM BROMIDE 0.5 MG/2.5 ML NEBU NEB SCH ×3 (01:38→13:05)
[2022-03-20 05:06] VITALS: BP 112/64
[2022-03-20] MEDS: PANTOPRAZOLE SODIUM 40 MG TABLET.DR PO SCH (06:01)
[2022-03-20] MEDS: BLOOD SUGAR DIAGNOSTIC 1 EACH STRIP VI SCH ×2 (06:32→11:41)
[2022-03-20 06:59] LABS: MEAN CORPUSCULAR HEMOGLOBIN 31.9 uug (23.8-33.4); MEAN CORPUSCULAR VOLUME 100.8 fL (73.0-96.2); PLATELET COUNT (AUTO) 150 K/uL (152-348)
[2022-03-20 07:16] LABS: MAGNESIUM 1.8 mg/dL (1.8-2.4); PHOSPHOROUS 4.7 mg/dL (2.5-4.9); POTASSIUM 4.7 mmol/L (3.5-5.1); URIC ACID 5.9 mg/dL (3.5-7.2)
--- NOTE | 2022-03-20 08:00 | NUR ---
PATIENT ALERT AND ORIENTED X3, COOPERATIVE AND ABLE TO FOLLOW COMMAND, DENIES PAIN OR RESPIRATORY DISTRESS. ON O2 3L SATURATING 95%. SR ON MONITOR
[2022-03-20] MEDS: methylPREDNISolone SOD SUCC 40 MG/ML VIAL IV SCH (08:22)
[2022-03-20] MEDS: FENOFIBRATE NANOCRYSTALLIZED 145 MG TABLET PO SCH (08:22)
[2022-03-20] MEDS: LAMOTRIGINE 100 MG TABLET PO SCH (08:23)
[2022-03-20] MEDS: BENZTROPINE MESYLATE 1 MG TABLET PO SCH (08:23)
[2022-03-20] MEDS: ALLOPURINOL 300 MG TABLET PO SCH (08:23)
[2022-03-20] MEDS: risperiDONE 2 MG TABLET PO SCH (08:23)
[2022-03-20] MEDS: ASPIRIN 81 MG TAB.CHEW PO SCH (08:23)
[2022-03-20] MEDS: FUROSEMIDE 40 MG/4 ML VIAL IV SCH (08:23)
[2022-03-20 08:26] LABS: HEMATOCRIT 62.5 % (36.7-47.1)
[2022-03-20] MEDS: ENOXAPARIN SODIUM 60 MG/0.6 ML DISP.SYRIN SQ SCH (08:26)
[2022-03-20] MEDS ORDERED: HYDROXYUREA 500 MG CAPSULE PO SCH (09:00)
[2022-03-20 09:29] LABS: BILIRUBIN,TOTAL 1.2 mg/dL (0.2-1.0); TOTAL PROTEIN, SERUM 6.7 g/dL (6.4-8.2)
[2022-03-20 09:39] LABS: BILIRUBIN,DIRECT 0.4 mg/dL (0.0-0.2)
[2022-03-20] MEDS ORDERED: FURO-151 PO (11:03)
[2022-03-20] MEDS ORDERED: POTA-10 PO (11:03)
[2022-03-20] MEDS ORDERED: ALLO300T2 PO (11:03)
[2022-03-20] MEDS ORDERED: HYDR500C PO (11:03)
[2022-03-20] MEDS: INSULIN REGULAR, HUMAN 300 UNIT/3 ML VIAL SQ PRN (11:49)
[2022-03-20 12:00] VITALS: BP 130/85
--- NOTE | 2022-03-20 12:00 | NUR ---
SEEN BY HOSPITALIST DEVON, DR CANTOR CANNING MACHINE OPERATOR AND DR MCCANN PUSH BUTTON SWITCH ASSEMBLER. SEE NOTES
--- NOTE | 2022-03-20 13:00 | NUR ---
DISCHARGE ORDER RECEIVED GLUE MIXER MADE AWARE AND PLAN TO GO BACK HOME WITH MOM/BROTHER
[2022-03-20] MEDS ORDERED: HYDROXYUREA 500 MG CAPSULE PO ONE (14:15)
--- NOTE | 2022-03-20 15:32 | NUR ---
DISCHARGED HOME HOME VIA AMBULANCE STABLE. REPORT GIVEN TO AMBULANCE
[2022-03-21] MEDS ORDERED: ERGOCALCIFEROL 50,000 UNIT CAPSULE PO SCH (09:00)
[2022-03-21] MEDS ORDERED: ENOXAPARIN SODIUM 40 MG/0.4 ML DISP.SYRIN SQ SCH (09:00)
[2022-03-21] MEDS ORDERED: HYDROXYUREA 500 MG CAPSULE PO SCH (09:00)
== END 2022-03-20 15:39 | disposition home health service (06) | DRG 291 ==
LOC: ER 23:06 → TELE-TD3 03-15 07:29 → TELE3 03-18 17:30
PROVIDERS: ADMIT Nurse Practitioner Acute Care; ATTEND Nurse Practitioner Acute Care
PROC: 05H633Z Insertion of Infusion Device into Left Subclavian Vein, Percutaneous Approach (ICD-10-PCS; principal; 2022-03-19)
PROC: B547ZZA Ultrasonography of Left Subclavian Vein, Guidance (ICD-10-PCS; 2022-03-19)
DX: I11.0 Hypertensive heart disease with heart failure (principal); I50.33 Acute on chronic diastolic (congestive) heart failure; J96.21 Acute and chronic respiratory failure with hypoxia; J96.22 Acute and chronic respiratory failure with hypercapnia; D68.59 Other primary thrombophilia; E66.2 Morbid (severe) obesity with alveolar hypoventilation; E87.1 Hypo-osmolality and hyponatremia; F20.0 Paranoid schizophrenia; J44.1 Chronic obstructive pulmonary disease with (acute) exacerbation; N17.9 Acute kidney failure, unspecified; D69.6 Thrombocytopenia, unspecified; D75.1 Secondary polycythemia; E11.9 Type 2 diabetes mellitus without complications; E83.42 Hypomagnesemia; E87.5 Hyperkalemia; F17.210 Nicotine dependence, cigarettes, uncomplicated; I25.10 Atherosclerotic heart disease of native coronary artery without angina pectoris; I27.29 Other secondary pulmonary hypertension; Z86.16 Personal history of COVID-19; Z87.01 Personal history of pneumonia (recurrent); I25.2 Old myocardial infarction; Z20.822 Contact with and (suspected) exposure to COVID-19; Z68.32 Body mass index [BMI] 32.0-32.9, adult; E78.5 Hyperlipidemia, unspecified; Z79.84 Long term (current) use of oral hypoglycemic drugs
CPT/HCPCS: 36415; 36600; 70030-TC; 71045; 71275; 76700; 82668; 82747; 82784; 82803; 83550; 83605; 83735; 84100; 84155; 84165; 84443; 84484; 84550; 85014; 85025; 85730; 93005; 93307; 94640; 94660; 94664; 94760; G0378; J1650; J1815; J1940; J2920; J3420; J3475; J3590; Q9967